=== PATIENT | female | born 1960 | race Caucasian/White ===

== ENCOUNTER 2021-03-07 11:08 | Inpatient (IN) | payer OTHER ==
[2021-03-07] VITALS (8 sets, daily range): BP systolic 145–173; BP diastolic 49–95
[~2021-03-07] VITALS: Ht 160 cm; Wt 111.6 kg
--- NOTE | 2021-03-07 11:20 | NUR ---
[id number] HOME FOR SOB SINCE LAST NIGHT. FAMILY MEMBERS SIMILAR SYMPTOMS NOT VACCINATED. UPON TRIAGE PT SATTING 80% ON O2 6LPM VIA N/C. PT A/OX4. CONNECTED PT TO POX AND MONITOR.
[2021-03-07] MEDS ORDERED: DEXAMETHASONE SOD PHOSPHATE 10 MG/ML VIAL ONE (11:50)
[2021-03-07] MEDS ORDERED: DEXAMETHASONE SOD PHOSPHATE 10 MG/ML VIAL IV ONE (12:00)
--- NOTE | 2021-03-07 12:08 | NUR ---
LAC #20G S/L; PATENT AND INTACT. BLOOD COLLECTED AND SENT TO LAB. COVID ANTIGEN AND PCR COLLECTED AND SENT TO LAB
[2021-03-07 12:10] LABS: BASOPHILS % (AUTO) 0.5 % (0.0-2.0); EOSINOPHILS % (AUTO) 0.5 % (0.0-6.0); HEMATOCRIT 36 % (33-45); HEMOGLOBIN 11.9 g/dL (11.5-14.8); LYMPHOCYTES # (AUTO) 0.5 K/uL (0.8-4.8); LYMPHOCYTES % (AUTO) 9.3 % (20.0-44.0); MEAN CORPUSCULAR HGB CONC 33 g/dl (31.0-36.0); MEAN CORPUSCULAR VOLUME 90 fL (82-100); MONOCYTES # (AUTO) 0.4 K/uL (0.1-1.30); NEUTROPHILS % (AUTO) 81.7 % (43.0-81.0); PLATELET COUNT (AUTO) 368 K/uL (150-450); RED BLOOD CELL COUNT(AUTO) 4.01 MIL/uL (4.0-5.2); WHITE BLOOD COUNT (AUTO) 4.9 K/uL (4.3-11.0)
--- NOTE | 2021-03-07 12:17 | NUR ---
PT. IS AWAKE AND ALERT PLACED INTO HIGH FLOW NASAL CANNULA DUE TO SOB AND 80% SATURATION IN 10 LPM SIMPLE MASK. HIGH FLOW PARAMETERS BELOW ORDER: 40 L FLOW FIO2 100% Addendum: 03/07/21 at 1220 by ANTONY WALLACE RT Amended: Links added.
--- NOTE | 2021-03-07 12:17 | NUR ---
RT AT PT'S BEDSIDE. PUT ON HIGHFLOW 40L / FIO2 100%; TOLERATING AT 95%.
[2021-03-07] MEDS ORDERED: AZIT250T13 PO (12:24)
[2021-03-07] MEDS ORDERED: BENZ200C53 PO (12:24)
[2021-03-07] MEDS ORDERED: METO25TA20 PO (12:24)
[2021-03-07] MEDS ORDERED: GABA-536 PO (12:24)
[2021-03-07] MEDS ORDERED: METF-440 PO (12:24)
[2021-03-07] MEDS ORDERED: INSU100I26 SQ (12:24)
[2021-03-07] MEDS ORDERED: HYDR-4077 PO (12:24)
[2021-03-07 12:34] LABS: ALANINE AMINOTRANSFERASE 22 U/L (12-78); ALBUMIN 2.3 g/dL (3.4-5.0); ALKALINE PHOSPHATASE 65 U/L (46-116); ASPARTATE AMINOTRANSFERASE 17 U/L (15-37); BILIRUBIN,TOTAL 0.4 mg/dL (0.2-1.0); CALCIUM, SERUM 8.6 mg/dL (8.5-10.1); CARBON DIOXIDE 24 mmol/L (21-32); CHLORIDE 97 mmol/L (98-107); CREATININE 1.5 mg/dL (0.6-1.3); POTASSIUM 4.7 mmol/L (3.5-5.1); SODIUM SERUM 134 mmol/L (136-145); TOTAL PROTEIN, SERUM 7.7 g/dL (6.4-8.2); UREA NITROGEN, BLOOD 31 mg/dL (7-18)
[2021-03-07 12:35] LABS: GLUCOSE 564 mg/dL (74-106)
--- NOTE | 2021-03-07 12:35 | NUR ---
LAB REPORTED BG [id number] - MICAH SAPP AWARE
[2021-03-07] MEDS ORDERED: INSULIN REGULAR, HUMAN 100 UNIT/ML 10 ML VIAL ONE (12:39)
[2021-03-07 12:48] LABS: ABG BASE EXCESS -2.7 mmol/L; ABG OXYGEN SATURATION 91.8 % (92.0-98.5); ABG PCO2 29.6 mmHg (35.0-45.0); ABG PH 7.451 (7.350-7.450); ABG PO2 63.2 mmHg (75.0-100.0); AaDO2 620.2 mmHg; COHb 0.3 % (0.5-1.5); MetHb 0.3 % (0.0-1.5); O2Hb 91.2 % (94.0-97.0); SITE, ABG Left Radial; VENT MODE, BG HFNC 40L 100%
[2021-03-07 13:00] LABS: D-DIMER 5.32 mg/L(FEU (0.17-0.50)
[2021-03-07] MEDS ORDERED: hydrALAZINE HCL IV 20 MG VIAL IV ONE (13:00)
[2021-03-07] MEDS ORDERED: IV NS 0.9% 1,000 ML BAG IV ONE ×2 (13:00)
[2021-03-07] MEDS ORDERED: METOPROLOL TARTRATE INJ 5 MG/5 ML AMPUL IV ONE (13:00)
[2021-03-07] MEDS ORDERED: LORAZEPAM INJ 2 MG/ML VIAL IV ONE (13:00)
[2021-03-07] MEDS ORDERED: INSULIN REGULAR, HUMAN 100 UNIT/ML 10 ML VIAL IV ONE ×2 (13:00→22:30)
[2021-03-07 13:03] LABS: C-REACTIVE PROTEIN 9.4 mg/dL (0.0-0.9); CREATINE KINASE, TOTAL 63 U/L (26-192)
[2021-03-07] MEDS ORDERED: hydrALAZINE HCL IV 20 MG VIAL ONE (13:07)
[2021-03-07] MEDS ORDERED: METOPROLOL TARTRATE INJ 5 MG/5 ML AMPUL ONE (13:07)
[2021-03-07] MEDS ORDERED: LORAZEPAM INJ 2 MG/ML VIAL ONE (13:08)
--- NOTE | 2021-03-07 13:13 | NUR ---
[facility] CALLED WOOL SHEARER PAGED.
--- NOTE | 2021-03-07 13:21 | NUR ---
BP 206/167. HYDRALAZINE & METROPOLOL IVP GIVEN ORDERED.
--- NOTE | 2021-03-07 13:57 | NUR ---
BS RECHECK AFTER INSULIN 10 UNITS: 415; MICAH SAPP NOTIFIED.
--- NOTE | 2021-03-07 13:58 | NUR ---
INFLUENZA SWAB COLLECTED AND SENT TO LAB
[2021-03-07] MEDS ORDERED: *INSULIN REGULAR(HUMULIN R)HUM 100 UNIT/ML VIAL SQ PRN (14:30)
[2021-03-07] MEDS ORDERED: ONDANSETRON HCL/PF 4 MG/2 ML VIAL IVP PRN (14:30)
[2021-03-07] MEDS ORDERED: ACETAMINOPHEN 325 MG TABLET PO PRN (14:30)
[2021-03-07] MEDS ORDERED: DEXTROSE 50%-WATER 50 ML DISP.SYRIN IV PRN ×3 (14:30→23:00)
[2021-03-07] MEDS ORDERED: Z GUARD REMEDY 4 OZ OINT TP PRN (14:30)
--- NOTE | 2021-03-07 14:49 | NUR ---
LAC #20G S/L; PATENT AND INTACT
--- NOTE | 2021-03-07 17:06 | NUR ---
PER RN ELECTRONIC EQUIPMENT INSTALLER PT CAN GO TO ICU ROOM 259
--- NOTE | 2021-03-07 17:45 | NUR ---
REPORT GIVEN TO ODALIS INSTRUMENTATION AND CONTROL TECHNICIAN FOR BERNADETTE
--- NOTE | 2021-03-07 18:05 | NUR ---
RN NOTES PATIENT ADMITTED FROM ER 60Y/OLD FEMALE ON Dx OF ACUTE HYPOXIC RESPIRATORY FAILURE. PATIENT A/O X4, LETHARGIC, ON HIGH FLOW MASK 40%. ON BEDSIDE MONITOR SHOWS 89% O2, HR 85. REFUSED PAIN. SKIN ASSESSMENT DONE INTACT, PATIENT USING BEDSIDE COMMODE, AMBULATORY SELF CARE. BS-466MG/DL COVERAGE GIVEN. STARTED D51/2 NS @75 ML/HR ON LEFT AC AREA IV ACCESS. GIVEN SNACK. ENDORSED ONCOMING NURSE FOLLOW PLAN OF CARE.
--- NOTE | 2021-03-07 18:14 | NUR ---
PT TRANSFERRED TO TO ICU 259 VIA ACLS PROTOCOL WITH RN. ALL BELONGINGS WITH PT. PT TOLERATING TRANSFER WELL.
[2021-03-07] MEDS: BLOOD SUGAR DIAGNOSTIC 1 EACH STRIP VI SCH ×2 (19:10→21:51)
[2021-03-07] MEDS: IV D5/0.45 NACL 1,000 ML IV PRN (19:11)
[2021-03-07] MEDS: INSULIN REGULAR, HUMAN 100 UNIT/ML 3 ML VIAL SQ PRN ×3 (19:16→22:57)
--- NOTE | 2021-03-07 19:35 | NUR ---
RN OPENING NOTES RECEIVED PATIENT IN BED, ALERT AND ORIENTED, RESPIRATORY EVEN AND UNLABORED, ON HIGH FLOW TOLERATING WELL, NO SOB NOTED, NO S/S OF DISTRESS NOTED. PATIENT NOTED WITH RAC PERIPHERAL LINE G#20 AND LAC PERIPHERAL LINE G#20 BOTH INTACT AND FLUSHING WELL. RUNNING ON D5 1/2 NS @ 75CC/HR. BED IN LOWEST POSITION LOCKED AND BED ALARM ARMED. WILL CONTINUE TO MONITOR
--- NOTE | 2021-03-07 21:43 | NUR ---
RN NOTES NOTIFIED DR. CAVANAUGH FOR BP 173/80 AND BLOOD SUGAR- 597
--- NOTE | 2021-03-07 21:50 | NUR ---
RN NOTES RECEIVED TELEPHONE ORDER FROM DR. CAVANAUGH, REGULAR INSULIN 12 UNITS IVP, CHANGED SLIDING SCALE TO AGGRESSIVE SLIDING SCALE, CLONIDINE 0.1MG Q6HRS PO PRN SBP >150, HYDRALAZINE 20MG IVP, Q4HRS PRN FOR SBP >160 NOTED AND CARRIED OUT. WILL CONTINUE TO MONITOR .
[2021-03-07] MEDS: HEPARIN SODIUM, PORCINE 5000 UNITS/1 ML VIAL SQ SCH (21:54)
[2021-03-07] MEDS ORDERED: BLOOD SUGAR DIAGNOSTIC 1 EACH STRIP IN SCH (22:30)
[2021-03-07] MEDS ORDERED: *INSULIN ASPART NOVOLOG 100 UNIT/ML CARTRIDGE SQ PRN (22:30)
[2021-03-07] MEDS ORDERED: INSULIN ASPART/LISPRO 100 UNIT/ML CARTRIDGE SQ PRN (22:30)
--- NOTE | 2021-03-07 23:00 | NUR ---
RN NOTES URINALYSIS RESULT CAME IN, CHARGE NURSE MADE AWARE.
[2021-03-08] VITALS (67 sets, daily range): BP systolic 77–183; BP diastolic 37–159
[2021-03-08 00:10] LABS: BILIRUBIN,URINE NEGATIVE (NEGATIVE); COLOR,URINE YELLOW (YELLOW); LEUKOCYTE ESTERASE ,URINE NEGATIVE (NEGATIVE); NITRITE, URINE NEGATIVE (NEGATIVE); PROTEIN,URINE 100 mg/dl (NEGATIVE); UGLUCOSE >=1000 mg/dL (NEGATIVE); UROBILINOGEN,URINE 0.2 EU/dL (0.2)
[2021-03-08 01:07] LABS: BACTERIA,URINE Few /HPF (None Seen); RBC,URINE 0-2 /HPF (0-2); SQUAMOUS EPITHELIAL CELL,UR Few /HPF (None Seen); WBC,URINE 0-2 /HPF (0-3); YEAST,URINE Many /HPF (None Seen)
--- NOTE | 2021-03-08 02:57 | NUR ---
RN NOTES RESIDENT NOTED WITH BP 144/16 ON THE MONITOR, BP RECHECKED USING MANUAL CUFF AND OBTAINED 145/90.
[2021-03-08 05:05] LABS: BASOPHILS % (AUTO) 0.2 % (0.0-2.0); EOSINOPHILS % (AUTO) 0.1 % (0.0-6.0); HEMATOCRIT 33 % (33-45); LYMPHOCYTES # (AUTO) 0.5 K/uL (0.8-4.8); LYMPHOCYTES % (AUTO) 10.5 % (20.0-44.0); MEAN CORPUSCULAR HGB CONC 33 g/dl (31.0-36.0); MEAN CORPUSCULAR VOLUME 88 fL (82-100); MONOCYTES # (AUTO) 0.5 K/uL (0.1-1.30); MONOCYTES % (AUTO) 10.2 % (2.0-12.0); NEUTROPHILS # (AUTO) 3.5 K/uL (1.8-8.9); PLATELET COUNT (AUTO) 330 K/uL (150-450); RED BLOOD CELL COUNT(AUTO) 3.77 MIL/uL (4.0-5.2); WHITE BLOOD COUNT (AUTO) 4.5 K/uL (4.3-11.0)
[2021-03-08 05:44] LABS: BILIRUBIN,TOTAL 0.2 mg/dL (0.2-1.0); CALCIUM, SERUM 8.3 mg/dL (8.5-10.1); CREATININE 1.1 mg/dL (0.6-1.3); PHOSPHORUS 2.7 mg/dL (2.5-4.9); TOTAL PROTEIN, SERUM 6.9 g/dL (6.4-8.2)
--- NOTE | 2021-03-08 07:15 | NUR ---
RN CLOSING NOTES NO SIGNIFICANT CHANGES THROUGH OUT THE SHIFT, , RESPIRATORY EVEN AND UNLABORED, ON HIGH FLOW @40% + NRB @ 15LPM TOLERATING WELL, NO SOB NOTED, NO S/S OF DISTRESS NOTED. PATIENT NOTED WITH RAC PERIPHERAL LINE G#20 AND LAC PERIPHERAL LINE G#20 BOTH INTACT AND FLUSHING WELL. RUNNING ON D5 1/2 NS @ 75CC/HR. ALL DUE MEDS GIVEN ORDERED. BED IN LOWEST POSITION LOCKED AND BED ALARM ARMED. WILL CONTINUE TO MONITOR. ENDORSED TO NEXT SHIFT.
--- NOTE | 2021-03-08 08:00 | NUR ---
RN NOTES RECEIVED PATIENT IN THE BED RESTING,, ON HF 40%+ NON -REBREATHER MASK @15L-O2-95%. HR 75 ON BEDSIDE MONITOR. PATIENT HAS NO ACUTE RESPIRATORY DISTRESS, BS-278MG/DL COVERAGE GIVEN, ALSO ADMINISTERED SCHEDULED MEDICATION. CALL LIGHT WITHIN TO REACH. WILL FOLLOW UP.
[2021-03-08] MEDS: BLOOD SUGAR DIAGNOSTIC 1 EACH STRIP IN SCH ×4 (08:47→21:50)
[2021-03-08] MEDS: DEXAMETHASONE SOD PHOSPHATE 10 MG/ML VIAL IV SCH (08:48)
[2021-03-08] MEDS: FAMOTIDINE (20 MG) 20 MG TABLET PO SCH (08:48)
[2021-03-08] MEDS: INSULIN REGULAR, HUMAN 100 UNIT/ML 3 ML VIAL SQ PRN ×3 (08:52→18:39)
[2021-03-08] MEDS: HEPARIN SODIUM, PORCINE 5000 UNITS/1 ML VIAL SQ SCH (08:56)
[2021-03-08] MEDS: CLONIDINE HCL 0.1 MG TABLET PO PRN (09:02)
--- NOTE | 2021-03-08 09:02 | NUR ---
rn notes administered Catapres 0.1 mg po prn for bp 152/61, p-76, also administered scheduled medication. Seen patient via captain cannery tender Dr Martinez, no new orders at this time.
[2021-03-08] MEDS: IV D5/0.45 NACL 1,000 ML IV PRN (11:53)
--- NOTE | 2021-03-08 12:21 | NUR ---
RN NOTES BS-306 MG/DL, PATIENT ON HF 40%, AND MARIAH OF NON -REBREATHER MASK 15 L, O2-93% IF NOT TAKING OUT. BS-306 MG/DL, COVERAGE GIVEN. PATIENT EATING LUNCH. ENCOURAGED TO KEEP MASK ON, AND BREATH. PATIENT STATE TO MUCH NOISE BOTHERING HER. USING BEDSIDE COMMODE. [facility]. WILL FOLLOW UP.
[2021-03-08] MEDS: ENOXAPARIN SODIUM 40 MG/0.4 ML DISP.SYRIN SQ SCH (18:21)
[2021-03-08] MEDS ORDERED: REMDESIVIR (CHARGED) 200 MG, *LOADING DOSE 1 EA in IV NS 0.9% 210 ML IV ONE ×3 (18:30→20:30)
--- NOTE | 2021-03-08 19:01 | NUR ---
rn notes assist patient pm care, patient noted getting tiered easily, also state " i wants to go home, get treatment house". bs-432 mg/dl, due medication administered infusing D51/2 ns @75 ml/hr on right ac line intact. patient coved positive, eating dinner. using bedside commode. call light within to reach. will follow up.
[2021-03-08] MEDS ORDERED: ACETAMINOPHEN 650 MG/20.3 ML UDC PO ONE (19:30)
[2021-03-08] MEDS ORDERED: TOCILIZUMAB 400 MG in IV NS 0.9% 80 ML IV ONE (19:30)
[2021-03-08] MEDS ORDERED: diphenhydrAMINE HCL 25 MG CAPSULE PO ONE ×2 (19:30)
[2021-03-08] MEDS ORDERED: TOCILIZUMAB 800 MG in IV NS 0.9% 80 ML IV ONE ×2 (19:30→21:00)
[2021-03-08] MEDS ORDERED: ACETAMINOPHEN 325 MG TABLET PO PRN (19:30)
[2021-03-08 20:04] LABS: ALBUMIN 2.1 g/dL (3.4-5.0); BILIRUBIN,DIRECT 0.1 mg/dL (0.0-0.2); BILIRUBIN,TOTAL 0.3 mg/dL (0.2-1.0); TOTAL PROTEIN, SERUM 6.8 g/dL (6.4-8.2)
[2021-03-08] MEDS ORDERED: IV NS 0.9% 250 ML IV PRN (21:30)
[2021-03-08] MEDS: *INSULIN REGULAR(HUMULIN R)HUM 100 UNIT/ML VIAL SQ PRN (21:53)
--- NOTE | 2021-03-08 22:00 | NUR ---
ICU NOTES Received patient awake alert and orientedx4.DX: Acute Hypoxemic Respiratory Failure. COVID + VS stable.SR.On HF 40L,100% FIO2 and NRB MASK 15L saturation low 90's and desat easily with activity low 80's.With SOB on exertion.Use BS commode.IVF infusing site intact.Continue to monitor.
--- NOTE | 2021-03-08 22:30 | NUR ---
ICU NOTES Patient received loading dose of Remdesivir and Actemra and was premedicated. No adverse reaction noted.
[2021-03-09] VITALS (25 sets, daily range): BP systolic 129–167; BP diastolic 46–97
[2021-03-09 04:59] LABS: BASOPHILS % (AUTO) 0.4 % (0.0-2.0); EOSINOPHILS % (AUTO) 1.1 % (0.0-6.0); HEMATOCRIT 34 % (33-45); HEMOGLOBIN 11.4 g/dL (11.5-14.8); LYMPHOCYTES # (AUTO) 0.9 K/uL (0.8-4.8); LYMPHOCYTES % (AUTO) 19.9 % (20.0-44.0); MEAN CORPUSCULAR HGB CONC 34 g/dl (31.0-36.0); MEAN CORPUSCULAR VOLUME 88 fL (82-100); MONOCYTES # (AUTO) 0.3 K/uL (0.1-1.30); MONOCYTES % (AUTO) 5.8 % (2.0-12.0); NEUTROPHILS # (AUTO) 3.4 K/uL (1.8-8.9); NEUTROPHILS % (AUTO) 72.8 % (43.0-81.0); PLATELET COUNT (AUTO) 350 K/uL (150-450); RED BLOOD CELL COUNT(AUTO) 3.83 MIL/uL (4.0-5.2); WHITE BLOOD COUNT (AUTO) 4.7 K/uL (4.3-11.0)
[2021-03-09 05:06] LABS: BILIRUBIN,DIRECT 0.1 mg/dL (0.0-0.2); BILIRUBIN,TOTAL 0.2 mg/dL (0.2-1.0); CALCIUM, SERUM 8.4 mg/dL (8.5-10.1); CREATININE 1.1 mg/dL (0.6-1.3); TOTAL PROTEIN, SERUM 6.8 g/dL (6.4-8.2)
--- NOTE | 2021-03-09 07:10 | NUR ---
END REPORT Patient resting in no acute distress.VS remains stable.SR .Saturations unchanged. RT aware.AM care rendered.Needs met.Report given to day shift RN
--- NOTE | 2021-03-09 07:30 | NUR ---
RN NOTES PT FOUND SITTING UP DISPLAYING NO S/S OF DISTRESS, PT ENDORSES NO PAIN AND IS BREATHING EVEN AND UNLABORED ON HIGH HERMELINDO NC AND RNB. PT IS A&OX4, CALM AND COOPERATIVE. NO CURRENT COMPLAINTS. R AC 20G PATIENT AND INTACT. VSS, RN WILL MONITOR AND TREAT THROUGHOUT SHIFT. SAFETY MEASURES IN PLACE, BED LOCKED AND IN LOWEST POSITION, SIDE RAILS UPX2, CALL LIGHT WITHIN REACH, PT INSTRUCTED TO CALL FOR ASSISTANCE.
[2021-03-09] MEDS: BLOOD SUGAR DIAGNOSTIC 1 EACH STRIP IN SCH ×4 (07:43→21:43)
[2021-03-09] MEDS: INSULIN REGULAR, HUMAN 100 UNIT/ML 3 ML VIAL SQ PRN ×3 (07:47→17:53)
[2021-03-09] MEDS: FAMOTIDINE (20 MG) 20 MG TABLET PO SCH (08:59)
[2021-03-09] MEDS: DEXAMETHASONE SOD PHOSPHATE 10 MG/ML VIAL IV SCH (08:59)
[2021-03-09] MEDS: ENOXAPARIN SODIUM 40 MG/0.4 ML DISP.SYRIN SQ SCH ×2 (09:01→17:33)
[2021-03-09] MEDS: REMDESIVIR (CHARGED) 100 MG in IV NS 0.9% 100 ML IV SCH (17:30)
[2021-03-09] MEDS: CLONIDINE HCL 0.1 MG TABLET PO PRN (17:30)
--- NOTE | 2021-03-09 19:15 | NUR ---
RN NOTES PT, ONCE AGAIN, FOUND SITTING UP DISPLAYING NO S/S OF DISTRESS, PT ENDORSES NO PAIN AND IS BREATHING EVEN AND UNLABORED ON HIGH HERMELINDO NC AND RNB. PT IS A&OX4, CALM AND COOPERATIVE. NO CURRENT COMPLAINTS. R AC 20G PATIENT AND INTACT. SBAR AND REPORT GIVEN TO PODIATRIST RN. SAFETY MEASURES IN PLACE, BED LOCKED AND IN LOWEST POSITION, SIDE RAILS UPX2, CALL LIGHT WITHIN REACH, PT INSTRUCTED TO CALL FOR ASSISTANCE. PT ENDORSED IN STABLE CONDITION FOR BERNADETTE, ALL QUESTIONS ANSWERED.
--- NOTE | 2021-03-09 19:30 | NUR ---
RN OPENING NOTE RECEIVED PATIENT IN BED. A/OX4. ON OXYGEN HIGH FLOW 40L AND 15L NRB. O2 SAT 89-90%. PATIENT IS SITTING IN BED AT THIS TIME. SPEAKING WITH FAMILY VIA CELLPHONE. NO C/O PAIN AT THIS TIME. IV ACCESS IN LAC#20 AND RAC#20 PATENT AND SALINE LOCKED. ASSISTED PATIENT TO BSC. ASKED HER IF SHE WOULD LIKE TO CHANGE HER LINEN AT THIS TIME, STATED NO THEY CHANGED IT EARLIER. WHEN ASSISTING PATIENT BACK IN BED, INFORMED HER IT WOULD BE BETTER IF SHE WERE PRONE, BUT STATED SHE CANT BECAUSE THE BED IS NOT FLAT, INFORMED HER I CAN MAKE IT FLAT. SHE STATED SHE DIDN'T WANT TO DO THAT AT THIS TIME. BED IS LOW AND LOCKED, HOB ELEVTAED IN SEMI/HIGH FOWLERS, SIDE RIALS UP X2. CALL LIGHT WITHIN REACH.
[2021-03-09] MEDS: *INSULIN REGULAR(HUMULIN R)HUM 100 UNIT/ML VIAL SQ PRN (21:52)
[2021-03-10] VITALS (28 sets, daily range): BP systolic 122–187; BP diastolic 58–129
[2021-03-10] MEDS: CLONIDINE HCL 0.1 MG TABLET PO PRN ×2 (02:11→19:15)
[2021-03-10 04:46] LABS: BASOPHILS % (AUTO) 0.4 % (0.0-2.0); EOSINOPHILS % (AUTO) 3.1 % (0.0-6.0); HEMATOCRIT 33 % (33-45); HEMOGLOBIN 11.1 g/dL (11.5-14.8); LYMPHOCYTES # (AUTO) 0.7 K/uL (0.8-4.8); LYMPHOCYTES % (AUTO) 19.2 % (20.0-44.0); MEAN CORPUSCULAR HGB CONC 34 g/dl (31.0-36.0); MEAN CORPUSCULAR VOLUME 88 fL (82-100); MONOCYTES # (AUTO) 0.3 K/uL (0.1-1.30); MONOCYTES % (AUTO) 8.6 % (2.0-12.0); NEUTROPHILS # (AUTO) 2.3 K/uL (1.8-8.9); NEUTROPHILS % (AUTO) 68.7 % (43.0-81.0); PLATELET COUNT (AUTO) 335 K/uL (150-450); RED BLOOD CELL COUNT(AUTO) 3.75 MIL/uL (4.0-5.2); WHITE BLOOD COUNT (AUTO) 3.4 K/uL (4.3-11.0)
[2021-03-10 05:12] LABS: BILIRUBIN,DIRECT 0.1 mg/dL (0.0-0.2); BILIRUBIN,TOTAL 0.2 mg/dL (0.2-1.0); CALCIUM, SERUM 8.5 mg/dL (8.5-10.1); CREATININE 1.1 mg/dL (0.6-1.3); POTASSIUM 3.8 mmol/L (3.5-5.1); TOTAL PROTEIN, SERUM 6.2 g/dL (6.4-8.2)
--- NOTE | 2021-03-10 06:14 | NUR ---
RN CLOSING NOTE PATIENT RESTING IN BED. A/OX4. REMAINS ON DOUBLE OXYGEN SET UP. HIGH FLOW 40L AND 15L NRB. PATIENT DOES DESATURATE TO 79% WHEN REMOVING 15L NRB. NO C/O PAIN THROUGHOUT NIGHT. ADMINISTERED PRN CLONIDINE D/T PATIENT BLOOD PRESSURE. LAC AND RAC #20 INTACT. CONTINUED TO REFUSE LINEN CHANGE THROUGHOUT NIGHT. BED REMAINS LOW AND LOCKED, HOB ELEVATED IN SEMI/HIGH FOWLERS, SIDE RIALS UP X2. CALL LIGHT WITHIN REACH. PATIENT SITTING AT EDGE OF BED.
[2021-03-10] MEDS: PANTOPRAZOLE 40 MG/PACK PACK PO SCH (08:05)
[2021-03-10] MEDS: DEXAMETHASONE SOD PHOSPHATE 10 MG/ML VIAL IV SCH (08:05)
[2021-03-10] MEDS: FAMOTIDINE (20 MG) 20 MG TABLET PO SCH (08:05)
[2021-03-10] MEDS: BLOOD SUGAR DIAGNOSTIC 1 EACH STRIP IN SCH ×4 (08:06→22:09)
[2021-03-10] MEDS: hydrALAZINE HCL IV 20 MG VIAL IV PRN (08:25)
[2021-03-10] MEDS: INSULIN REGULAR, HUMAN 100 UNIT/ML 3 ML VIAL SQ PRN ×3 (08:26→17:52)
[2021-03-10] MEDS: ENOXAPARIN SODIUM 40 MG/0.4 ML DISP.SYRIN SQ SCH ×2 (08:27→17:45)
--- NOTE | 2021-03-10 15:40 | NUR ---
RT NOTE PATIENT SPO2 96-97%. REMOVED NRB. NO SOB NOTED AT THIS TIME. CAMACHO LONG.
[2021-03-10] MEDS: REMDESIVIR (CHARGED) 100 MG in IV NS 0.9% 100 ML IV SCH (17:45)
--- NOTE | 2021-03-10 19:20 | NUR ---
RN NOTES PT, FOUND SEMI FOWLERS DISPLAYING NO S/S OF DISTRESS, PT ENDORSES NO PAIN AND IS BREATHING EVEN AND UNLABORED ON HIGH HERMELINDO NC. PT IS A&OX4, CALM AND COOPERATIVE. R AC 20G PATIENT AND INTACT. SBAR AND REPORT GIVEN TO MOLD SHEET CLEANER RN. SAFETY MEASURES IN PLACE, BED LOCKED AND IN LOWEST POSITION, SIDE RAILS UPX2, CALL LIGHT WITHIN REACH, PT INSTRUCTED TO CALL FOR ASSISTANCE. PT ENDORSED IN STABLE CONDITION FOR BERNADETTE, ALL QUESTIONS ANSWERED.
--- NOTE | 2021-03-10 20:28 | NUR ---
RECEIVED PT ON HFNC 40L 100%. NO RESP DISTRESS, PT TOLERATING SETTINGS. CONTINUE TO MONITOR. Addendum: 03/10/21 at 2028 by SHEKHAR SANCHES RT Amended: Links added.
--- NOTE | 2021-03-10 20:30 | NUR ---
ICU/HAT AND CAP SEWER PT GOT UP TO THE BATHROOM, VOIDED X1 THEN HAD SOME SHORTNESS OF BREATH. NON REBREATHER MASK AT 15 LITERS WAS ADDED TO THE HIGH FLOW. WILL CONTINUE TO MONITOR THIS PT AND HER SATURATION.
[2021-03-10] MEDS: *INSULIN REGULAR(HUMULIN R)HUM 100 UNIT/ML VIAL SQ PRN (22:12)
[2021-03-11] VITALS (44 sets, daily range): BP systolic 63–177; BP diastolic 27–94
[2021-03-11 03:47] LABS: BASOPHILS % (AUTO) 0.5 % (0.0-2.0); EOSINOPHILS % (AUTO) 3.7 % (0.0-6.0); HEMATOCRIT 34 % (33-45); HEMOGLOBIN 11.6 g/dL (11.5-14.8); LYMPHOCYTES # (AUTO) 0.9 K/uL (0.8-4.8); LYMPHOCYTES % (AUTO) 21.8 % (20.0-44.0); MEAN CORPUSCULAR HGB CONC 34 g/dl (31.0-36.0); MEAN CORPUSCULAR VOLUME 87 fL (82-100); MONOCYTES # (AUTO) 0.3 K/uL (0.1-1.30); MONOCYTES % (AUTO) 8.3 % (2.0-12.0); NEUTROPHILS # (AUTO) 2.7 K/uL (1.8-8.9); NEUTROPHILS % (AUTO) 65.7 % (43.0-81.0); PLATELET COUNT (AUTO) 348 K/uL (150-450); RED BLOOD CELL COUNT(AUTO) 3.88 MIL/uL (4.0-5.2); WHITE BLOOD COUNT (AUTO) 4.1 K/uL (4.3-11.0)
[2021-03-11 04:11] LABS: ALBUMIN 2.1 g/dL (3.4-5.0); BILIRUBIN,DIRECT 0.1 mg/dL (0.0-0.2); BILIRUBIN,TOTAL 0.2 mg/dL (0.2-1.0); CALCIUM, SERUM 8.1 mg/dL (8.5-10.1); CREATININE 1.1 mg/dL (0.6-1.3); POTASSIUM 3.8 mmol/L (3.5-5.1); TOTAL PROTEIN, SERUM 6.3 g/dL (6.4-8.2)
--- NOTE | 2021-03-11 04:30 | NUR ---
ICU/ELECTROLYSIST HYDRALAZINE IVP PRN WAS GIVEN FOR SBP 177/91, PT'S BLOOD PRESSURE HAS SLOWLY BEEN INCREASING OVER THE PAST FEW HOURS. WILL CONTINUE TO CLOSELY MONITOR THIS PT AND HER BLOOD PRESSURE.
[2021-03-11] MEDS ORDERED: hydrALAZINE HCL IV 20 MG VIAL ONE (04:33)
[2021-03-11] MEDS: hydrALAZINE HCL IV 20 MG VIAL IV PRN (04:37)
[2021-03-11] MEDS: BLOOD SUGAR DIAGNOSTIC 1 EACH STRIP IN SCH ×4 (08:09→21:09)
[2021-03-11] MEDS: INSULIN REGULAR, HUMAN 100 UNIT/ML 3 ML VIAL SQ PRN ×2 (08:10→11:49)
[2021-03-11] MEDS: FAMOTIDINE (20 MG) 20 MG TABLET PO SCH (08:10)
[2021-03-11] MEDS: PANTOPRAZOLE 40 MG/PACK PACK PO SCH (08:11)
[2021-03-11] MEDS: ENOXAPARIN SODIUM 40 MG/0.4 ML DISP.SYRIN SQ SCH ×2 (08:11→17:51)
[2021-03-11] MEDS: DEXAMETHASONE SOD PHOSPHATE 10 MG/ML VIAL IV SCH (08:29)
--- NOTE | 2021-03-11 08:50 | NUR ---
ICU/BIOMETRICS INSTRUCTOR PT WAS COUGHING TO THE POINT SHE WAS HAVING NAUSEA, NOTIFED THE CHARGE NURSE WAS ABLE TO GIVE HER ZOFRAN IVP PRN BY WAFER LINE WORKER NURSE. WILL CONTINUE TO MONITOR THIS PT AND HER NAUSEA.
--- NOTE | 2021-03-11 09:42 | NUR ---
ICU/COLLEGE ASSOCIATE DR BOSS CAME TO SEE PT, ASKED ABOUT BEING DISCHARGED HOWEVER PT IS ON HIGH FLOW ALONG WITH NON REBREATHER SINCE LAST NIGHT 1999 WHEN SHE GOT UP TO BATHROOM.
--- NOTE | 2021-03-11 13:00 | NUR ---
ICU/DIRECTOR OF CHILD WELFARE SERVICES PT SAT IN CHAIR WAS ABLE TO DO SOME RANGE OF MOTION, ENCOURAGE FOOT PETALS/GAS/STOP AND GO TO HELP WITH CIRCULATION. WILL MONITOR THIS PT.
[2021-03-11] MEDS: REMDESIVIR (CHARGED) 100 MG in IV NS 0.9% 100 ML IV SCH (17:53)
[2021-03-11] MEDS: *INSULIN REGULAR(HUMULIN R)HUM 100 UNIT/ML VIAL SQ PRN ×2 (17:54→21:13)
--- NOTE | 2021-03-11 18:17 | NUR ---
ICU/OINTMENT MILL TENDER STOOL SOFTENER WAS ORDERED FOR THIS PT, PT SAID SHE HASN'T HAD A BM X2DAYS. COLACE 100MG PO WILL START TONIGHT.
--- NOTE | 2021-03-11 19:30 | NUR ---
RN NOTE RECEIVED PATIENT IN CHAIR BY BEDSIDE. AWAKE, ALERT, AND VERBALLY RESPONSIVE. AOX4. ABLE TO MAKE NEEDS KNOWN. BREATHING EVEN AND UNLABORED AT THIS TIME. PATIENT TOLERATING 40L/MIN HIGH FLOW VIA NASAL CANNULA. CURRENTLY NOT USING NON-REBREATHER MASK AT THIS TIME. OXYGEN SATURATION OF 95 PERCENT. NOTED WITH NON-PRODUCTIVE COUGH. SATURATION DROPS TO LOW 90'S WHEN TALKING/COUGHING. DENIES CHEST PAIN AT THIS TIME. ON TELE-MONITORING, SINUS RHYTHM AT THIS TIME. SKIN WARM AND DRY. NOTED WITH PERIPHERAL IV ON RIGHT AC 20G, PATENT. NO INFILTRATION. NOTED WITH LEFT AC 20G. NO IVF RUNNING AT THIS TIME. DENIES PAIN AT THIS TIME. NO S/S OF HYPO/HYPERGLYCEMIA. BEDSIDE COMMODE PRESENT. BED LOW, IN LOCKED POSITION. CALL LIGHT WITHIN REACH.
[2021-03-11] MEDS: DOCUSATE SODIUM 100 MG CAPSULE PO SCH (21:09)
--- NOTE | 2021-03-11 21:20 | NUR ---
RN NOTE EXPLAINED TO PATIENT THAT SHE HAS SCHEDULED STOOL SOFTENER FOR TONIGHT. EXPLAINED ITS PURPOSE AND RISK/BENEFITS. PATIENT REFUSED MEDICATION. PATIENT STATES HER LAST BM WAS ABOUT 2 DAYS AGO. STILL REFUSED. WILL CONTINUE TO MONITOR. BEDSIDE COMMODE PRESENT. DENIES ABDOMINAL PAIN/GAS.
--- NOTE | 2021-03-11 21:26 | NUR ---
RN NOTE PATIENT NOTED WITH LOW BP. 63/27. PATIENT AOX4. STATES SHE IS DOING FINE. DENIES FEELING DIZZINESS/FAINTING. TELE MONITORING SHOWS SINUS RHYTHM AT 64 BPM. REPOSITIONED CUFF. Latest BP: 136/73
[2021-03-12] VITALS (38 sets, daily range): BP systolic 103–172; BP diastolic 42–122
--- NOTE | 2021-03-12 01:59 | NUR ---
RN NOTE LEFT AC 20G PERIPHERAL IV LEAKING. REMOVED. MIDLINE 18G PLACED ON RIGHT UPPER ARM.
[2021-03-12 04:47] LABS: BASOPHILS % (AUTO) 0.5 % (0.0-2.0); EOSINOPHILS % (AUTO) 2.9 % (0.0-6.0); HEMATOCRIT 36 % (33-45); LYMPHOCYTES # (AUTO) 0.8 K/uL (0.8-4.8); LYMPHOCYTES % (AUTO) 17.3 % (20.0-44.0); MEAN CORPUSCULAR HGB CONC 33 g/dl (31.0-36.0); MEAN CORPUSCULAR VOLUME 89 fL (82-100); MONOCYTES # (AUTO) 0.4 K/uL (0.1-1.30); MONOCYTES % (AUTO) 8.1 % (2.0-12.0); NEUTROPHILS # (AUTO) 3.3 K/uL (1.8-8.9); NEUTROPHILS % (AUTO) 71.2 % (43.0-81.0); PLATELET COUNT (AUTO) 354 K/uL (150-450); RED BLOOD CELL COUNT(AUTO) 4.05 MIL/uL (4.0-5.2); WHITE BLOOD COUNT (AUTO) 4.7 K/uL (4.3-11.0)
[2021-03-12 05:04] LABS: ALBUMIN 2.4 g/dL (3.4-5.0); BILIRUBIN,DIRECT 0.1 mg/dL (0.0-0.2); BILIRUBIN,TOTAL 0.3 mg/dL (0.2-1.0); CALCIUM, SERUM 8.2 mg/dL (8.5-10.1); CREATININE 1.1 mg/dL (0.6-1.3); POTASSIUM 4.2 mmol/L (3.5-5.1); TOTAL PROTEIN, SERUM 6.7 g/dL (6.4-8.2)
[2021-03-12] MEDS: CLONIDINE HCL 0.1 MG TABLET PO PRN (05:11)
--- NOTE | 2021-03-12 05:11 | NUR ---
RN NOTE PATIENT NOTED WITH SBP >150 AT BP OG 155/79, HR 64 AT THIS TIME. PER MD STANDING ORDER. ADMINISTER CLONIDINE 0.1MG FOR SBP GREATER THAN 150. NOTED AND CARRIED OUT. PATIENT DENIES FEELINGS OF HEADACHE OR N/V. WILL CONTINUE TO MONITOR. CALL LIGHT WITHIN REACH.
--- NOTE | 2021-03-12 07:30 | NUR ---
RN MORNING NOTE PT RECEIVED SITTING AT BEDSIDE IN CHAIR ON HIGH HERMELINDO 40L/MIN AND 100% FIO2, PT IS TOLERATING WELL WITH NO SIGNS OF LABORED BREATHING OR DISTRESS. PT IS A/O X4 AND IS TELE MONITORED SR. PT IS AMBULATORY AND USES BEDSIDE COMMODE; PT LAST BM 03/09/21. IV ACCESS R UA MIDLINE 18G. BED IS LOCKED IN LOWEST POSITION X2 BED RAILS UP, CALL PAEZ IS WITHIN REACH AT BEDSIDE, ALL HOSPITAL SAFETY MEASURES ARE IN PLACE. WILL CONTINUE TO MONITOR THIS SHIFT.
[2021-03-12] MEDS: BLOOD SUGAR DIAGNOSTIC 1 EACH STRIP IN SCH ×4 (07:57→21:22)
[2021-03-12] MEDS: DOCUSATE SODIUM 100 MG CAPSULE PO SCH (09:19)
[2021-03-12] MEDS: DEXAMETHASONE SOD PHOSPHATE 10 MG/ML VIAL IV SCH (09:19)
[2021-03-12] MEDS: FAMOTIDINE (20 MG) 20 MG TABLET PO SCH (09:20)
[2021-03-12] MEDS: PANTOPRAZOLE 40 MG/PACK PACK PO SCH (09:20)
[2021-03-12] MEDS: ENOXAPARIN SODIUM 40 MG/0.4 ML DISP.SYRIN SQ SCH ×2 (09:21→17:03)
[2021-03-12] MEDS: INSULIN REGULAR, HUMAN 100 UNIT/ML 3 ML VIAL SQ PRN ×3 (09:22→17:29)
--- NOTE | 2021-03-12 11:00 | NUR ---
RN NOTE PT FIO2 TITRATED FROM 100 TO 85% SAT 96%. WILL CONTINUE TO MONITOR THIS SHIFT.
[2021-03-12] MEDS: GLUCERNA SHAKE 237 ML CAN PO SCH ×2 (12:06→18:32)
--- NOTE | 2021-03-12 17:15 | NUR ---
RN NOTE CALLED LAB FOR URINE CULTURE SPECIMEN PICKUP FROM ICU SPECIMEN [facility].
[2021-03-12] MEDS: REMDESIVIR (CHARGED) 100 MG in IV NS 0.9% 100 ML IV SCH (18:31)
--- NOTE | 2021-03-12 19:17 | NUR ---
RN CLOSING NOTE PT SITTING AT BEDSIDE IN CHAIR ON HIGH HERMELINDO 40L/MIN AND 85% FIO2, O2 SAT 95%. PT IS TOLERATING WELL WITH NO SIGNS OF LABORED BREATHING OR DISTRESS. PT IS A/O X4 AND IS TELE MONITORED SR. PT IS AMBULATORY AND USES BEDSIDE COMMODE WITH 1 BM MOVEMENT TODAY. IV ACCESS R UA MIDLINE 18G AND RECEIVING FINAL BAG OF REMDESIVIR. BED IS LOCKED IN LOWEST POSITION X2 BED RAILS UP, CALL PAEZ IS WITHIN REACH AT BEDSIDE, ALL HOSPITAL SAFETY MEASURES ARE IN PLACE. ALL MEDS GIVEN AND ALL NEEDS MEET. WILL ENDORSE TO CENTRIFUGAL OPERATOR NURSE FOR BERNADETTE.
[2021-03-12] MEDS: *INSULIN REGULAR(HUMULIN R)HUM 100 UNIT/ML VIAL SQ PRN (21:25)
[2021-03-13] VITALS (38 sets, daily range): BP systolic 67–143; BP diastolic 38–98
--- NOTE | 2021-03-13 00:10 | NUR ---
ICU/GENERAL INTERN PT ASLEEP IN CHAIR, NO DISTRESS SEEN AT THIS TIME. PT'S SATURATION IS 95-96%. CALL LIGHT WITHIN REACH.
--- NOTE | 2021-03-13 04:30 | NUR ---
ICU/TEST DEVELOPER PT MOVED FROM CHAIR TO BED. PT REMAINS ON THE HIGH FLOW WITH SATURATION AT 93-95%. CALL LIGHT WITHIN REACH. WILL CONTINUE TO MONITOR THIS PT.
[2021-03-13 05:10] LABS: BASOPHILS % (AUTO) 0.9 % (0.0-2.0); EOSINOPHILS % (AUTO) 2.1 % (0.0-6.0); HEMATOCRIT 34 % (33-45); HEMOGLOBIN 11.4 g/dL (11.5-14.8); LYMPHOCYTES # (AUTO) 0.9 K/uL (0.8-4.8); LYMPHOCYTES % (AUTO) 18.5 % (20.0-44.0); MEAN CORPUSCULAR HGB CONC 34 g/dl (31.0-36.0); MEAN CORPUSCULAR VOLUME 88 fL (82-100); MONOCYTES # (AUTO) 0.4 K/uL (0.1-1.30); MONOCYTES % (AUTO) 8.3 % (2.0-12.0); NEUTROPHILS # (AUTO) 3.6 K/uL (1.8-8.9); NEUTROPHILS % (AUTO) 70.2 % (43.0-81.0); PLATELET COUNT (AUTO) 314 K/uL (150-450); RED BLOOD CELL COUNT(AUTO) 3.84 MIL/uL (4.0-5.2); WHITE BLOOD COUNT (AUTO) 5.1 K/uL (4.3-11.0)
[2021-03-13 05:42] LABS: ALBUMIN 2.3 g/dL (3.4-5.0); BILIRUBIN,DIRECT 0.1 mg/dL (0.0-0.2); BILIRUBIN,TOTAL 0.3 mg/dL (0.2-1.0); CREATININE 1.1 mg/dL (0.6-1.3); POTASSIUM 3.8 mmol/L (3.5-5.1); TOTAL PROTEIN, SERUM 6.3 g/dL (6.4-8.2)
--- NOTE | 2021-03-13 07:30 | NUR ---
RN NOTES PT FOUND SITTING IN CHAIR DISPLAYING NO S/S OF DISTRESS, PT ENDORSES NO PAIN AND BREATHING IS EVEN AND MINIMAL LABOR ON HIGH FLOW NC. PT CALM AND COOPERATIVE. L UA MIDLINE IS PATIENT AND INTACT. VSS, RN WILL MONITOR AND TREAT THROUGHOUT SHIFT. SAFETY MEASURES IN PLACE, CALL LIGHT WITHIN REACH AND PATIENT INSTRUCTED TO CALL FOR ASSISTANCE.
[2021-03-13] MEDS: FAMOTIDINE (20 MG) 20 MG TABLET PO SCH (08:03)
[2021-03-13] MEDS: DEXAMETHASONE SOD PHOSPHATE 10 MG/ML VIAL IV SCH (08:03)
[2021-03-13] MEDS: DOCUSATE SODIUM 100 MG CAPSULE PO SCH (08:03)
[2021-03-13] MEDS: PANTOPRAZOLE 40 MG/PACK PACK PO SCH (08:04)
[2021-03-13] MEDS: ENOXAPARIN SODIUM 40 MG/0.4 ML DISP.SYRIN SQ SCH ×2 (08:04→16:41)
[2021-03-13] MEDS: BLOOD SUGAR DIAGNOSTIC 1 EACH STRIP IN SCH ×4 (08:05→22:04)
[2021-03-13] MEDS: INSULIN REGULAR, HUMAN 100 UNIT/ML 3 ML VIAL SQ PRN ×4 (08:24→17:07)
[2021-03-13] MEDS: GLUCERNA SHAKE 237 ML CAN PO SCH ×2 (12:13→17:14)
--- NOTE | 2021-03-13 12:30 | NUR ---
MD COMMUNICATION RN PERFORMED ACCU CHECK, VALUE WAS 504. RN NOTIFIED HOSPITALIST PER ORDER. DEVULCANIZER LOADER KEH GAVE ORDERS, GIVE SLIDING SCALE, RECHECK SOON AND NOTIFY DEVULCANIZER LOADER. RN ACKNOWLEDGED AND WILL CARRY OUT ORDERS
--- NOTE | 2021-03-13 14:10 | NUR ---
ASSISTANT CITY ATTORNEY VISIT ASSISTANT CITY ATTORNEY [facility] VISITING PT, RN INFORMED ASSISTANT CITY ATTORNEY OF F/U ACCU CHECK. ASSISTANT CITY ATTORNEY ORDERED TO GIVE ANOTHER SLIDING SCALE. RN WILL EXECUTE
[2021-03-13] MEDS ORDERED: BENZONATATE 100 MG CAPSULE PO PRN (15:00)
[2021-03-13] MEDS: hydrALAZINE HCL 50 MG TABLET PO SCH (16:37)
[2021-03-13] MEDS: METOPROLOL TARTRATE 25 MG TABLET PO SCH (16:39)
--- NOTE | 2021-03-13 19:10 | NUR ---
RN NOTES PT FOUND SEMI FOWLERS DISPLAYING NO S/S OF DISTRESS, PT ENDORSES NO PAIN AND BREATHING IS EVEN AND MINIMAL LABOR ON HIGH FLOW NC. PT CALM AND COOPERATIVE. L UA MIDLINE IS PATIENT AND INTACT. SBAR AND REPORT GIVEN TO COMMUNITY SUPPORT ASSOCIATE RN, ALL QUESTIONS ANSWERED. SAFETY MEASURES IN PLACE, CALL LIGHT WITHIN REACH AND PATIENT INSTRUCTED TO CALL FOR ASSISTANCE. PT ENDORSED IN STABLE CONDITION FOR BERNADETTE.
--- NOTE | 2021-03-13 20:30 | NUR ---
ICU/CORE MICROARCHITECT PT IS CLEARED TO BE DOWN GRADED.
[2021-03-13] MEDS: GABAPENTIN 400 MG CAPSULE PO SCH (21:22)
--- NOTE | 2021-03-13 22:00 | NUR ---
ICU/WIND POWER PROJECT MANAGER PT WAS GIVEN TESSALON PERLES FOR COUGH. NO DISTRESS SEEN AT THIS TIME , CALL LIGHT WITHIN REACH.
[2021-03-13] MEDS: *INSULIN REGULAR(HUMULIN R)HUM 100 UNIT/ML VIAL SQ PRN (22:11)
[2021-03-13] MEDS: INSULIN GLARGINE, 100 UNIT/ML CARTRIDGE SQ SCH (22:12)
[2021-03-14] VITALS (32 sets, daily range): BP systolic 89–144; BP diastolic 34–80
--- NOTE | 2021-03-14 01:35 | NUR ---
ICU/DENTAL HYGIENE TEACHER PT APPEARS TO BE RESTING COMFORTABLE. NO ACUTE DISTRESS SEEN AT THIS TIME. PT IS ON HIGH FLOW, WITH SATURATION AT 92-94%.
[2021-03-14 05:26] LABS: BASOPHILS # (AUTO) 0.1 K/uL (0.0-0.2); BASOPHILS % (AUTO) 1.2 % (0.0-2.0); EOSINOPHILS % (AUTO) 1.3 % (0.0-6.0); HEMATOCRIT 33 % (33-45); HEMOGLOBIN 11.2 g/dL (11.5-14.8); LYMPHOCYTES % (AUTO) 17.4 % (20.0-44.0); MEAN CORPUSCULAR HGB CONC 34 g/dl (31.0-36.0); MEAN CORPUSCULAR VOLUME 88 fL (82-100); MONOCYTES # (AUTO) 0.5 K/uL (0.1-1.30); MONOCYTES % (AUTO) 9.3 % (2.0-12.0); NEUTROPHILS # (AUTO) 4.1 K/uL (1.8-8.9); NEUTROPHILS % (AUTO) 70.8 % (43.0-81.0); PLATELET COUNT (AUTO) 282 K/uL (150-450); RED BLOOD CELL COUNT(AUTO) 3.72 MIL/uL (4.0-5.2); WHITE BLOOD COUNT (AUTO) 5.8 K/uL (4.3-11.0)
[2021-03-14 05:42] LABS: CALCIUM, SERUM 8.4 mg/dL (8.5-10.1); CREATININE 1.1 mg/dL (0.6-1.3); POTASSIUM 4.5 mmol/L (3.5-5.1)
--- NOTE | 2021-03-14 06:00 | NUR ---
ICU/LIVESTOCK EXHIBITOR CALLED THE ART GILDER TO GET EAR DROPS FOR PT, SHE COMPLAINED THAT HER EARS ARE "POPPING" AWAIT FOR CALL BACK.
--- NOTE | 2021-03-14 07:30 | NUR ---
RN NOTES PT FOUND SITTING IN CHAIR TALKING ON PHONE DISPLAYING NO S/S OF DISTRESS, PT ENDORSES NO PAIN AND BREATHING IS EVEN AND MINIMAL LABOR ON HIGH FLOW NC. PT CALM AND COOPERATIVE. L UA MIDLINE IS PATIENT AND INTACT. VSS, RN WILL MONITOR AND TREAT THROUGHOUT SHIFT. SAFETY MEASURES IN PLACE, CALL LIGHT WITHIN REACH AND PATIENT INSTRUCTED TO CALL FOR ASSISTANCE.
[2021-03-14] MEDS: BLOOD SUGAR DIAGNOSTIC 1 EACH STRIP IN SCH ×4 (08:05→21:38)
[2021-03-14] MEDS: DEXAMETHASONE SOD PHOSPHATE 10 MG/ML VIAL IV SCH (08:05)
[2021-03-14] MEDS: hydrALAZINE HCL 50 MG TABLET PO SCH ×2 (08:08→17:44)
[2021-03-14] MEDS: DOCUSATE SODIUM 100 MG CAPSULE PO SCH (08:08)
[2021-03-14] MEDS: FAMOTIDINE (20 MG) 20 MG TABLET PO SCH (08:09)
[2021-03-14] MEDS: METOPROLOL TARTRATE 25 MG TABLET PO SCH ×2 (08:09→17:43)
[2021-03-14] MEDS: PANTOPRAZOLE 40 MG/PACK PACK PO SCH (08:09)
[2021-03-14] MEDS: ENOXAPARIN SODIUM 40 MG/0.4 ML DISP.SYRIN SQ SCH ×2 (08:10→17:45)
[2021-03-14] MEDS: INSULIN REGULAR, HUMAN 100 UNIT/ML 3 ML VIAL SQ PRN ×3 (08:33→17:56)
[2021-03-14] MEDS: GLUCERNA SHAKE 237 ML CAN PO SCH ×2 (13:10→18:30)
[2021-03-14] MEDS ORDERED: CARBAMIDE PEROXIDE OTIC 15 ML BOTTLE EACH EAR ONE (17:00)
--- NOTE | 2021-03-14 19:30 | NUR ---
RN NOTES PT FOUND SEMI FOWLERS DISPLAYING NO S/S OF DISTRESS, PT ENDORSES NO PAIN AND BREATHING IS EVEN AND MINIMAL LABOR ON HIGH FLOW NC. PT CALM AND COOPERATIVE. L UA MIDLINE IS PATIENT AND INTACT. SBAR AND REPORT GIVEN TO PUBLIC HEALTH POLICY ANALYST RN, ALL QUESTIONS ANSWERED. SAFETY MEASURES IN PLACE, CALL LIGHT WITHIN REACH AND PATIENT INSTRUCTED TO CALL FOR ASSISTANCE. PT ENDORSED IN STABLE CONDITION FOR BERNADETTE.
[2021-03-14] MEDS: GABAPENTIN 400 MG CAPSULE PO SCH (21:55)
[2021-03-14] MEDS: INSULIN GLARGINE, 100 UNIT/ML CARTRIDGE SQ SCH (21:57)
[2021-03-14] MEDS: *INSULIN REGULAR(HUMULIN R)HUM 100 UNIT/ML VIAL SQ PRN (21:57)
[2021-03-15] VITALS (13 sets, daily range): BP systolic 106–138; BP diastolic 57–79
--- NOTE | 2021-03-15 01:35 | NUR ---
RN NOTE PT APPEARS COMFORTABLE, RESTING. NO DISTRESS NOTED. PT O2SAT 94% AT THIS TIME. ALL NEEDS ATTENDED.
[2021-03-15 04:58] LABS: CREATININE 1.1 mg/dL (0.6-1.3); POTASSIUM 4.2 mmol/L (3.5-5.1)
[2021-03-15 05:03] LABS: BASOPHILS # (AUTO) 0.1 K/uL (0.0-0.2); BASOPHILS % (AUTO) 1.2 % (0.0-2.0); HEMATOCRIT 34 % (33-45); HEMOGLOBIN 11.5 g/dL (11.5-14.8); LYMPHOCYTES # (AUTO) 1.1 K/uL (0.8-4.8); LYMPHOCYTES % (AUTO) 16.9 % (20.0-44.0); MEAN CORPUSCULAR HGB CONC 34 g/dl (31.0-36.0); MEAN CORPUSCULAR VOLUME 89 fL (82-100); MONOCYTES # (AUTO) 0.5 K/uL (0.1-1.30); MONOCYTES % (AUTO) 7.9 % (2.0-12.0); NEUTROPHILS # (AUTO) 4.6 K/uL (1.8-8.9); PLATELET COUNT (AUTO) 288 K/uL (150-450); RED BLOOD CELL COUNT(AUTO) 3.84 MIL/uL (4.0-5.2); WHITE BLOOD COUNT (AUTO) 6.3 K/uL (4.3-11.0)
--- NOTE | 2021-03-15 07:31 | NUR ---
RN CLOSING NOTE NO SIGNIFICANT CHANGE IN PT CONDITION. ALL NEEDS ATTENDED. DENIES PAIN AND SOB. ON HIGH FLOW 40L FIO2 75% TOLERATING WELL. O2 SAT 93%. PT REMAINS INDEPENDENT. MOTIVATED TO SELF CARE. SAFETY MEASURES IN PLACE. ENDORSED TO DAY SHIFT RN FOR CONTINUATION OF CARE.
[2021-03-15] MEDS: BLOOD SUGAR DIAGNOSTIC 1 EACH STRIP IN SCH ×4 (08:25→21:14)
[2021-03-15] MEDS: FAMOTIDINE (20 MG) 20 MG TABLET PO SCH (08:26)
[2021-03-15] MEDS: METOPROLOL TARTRATE 25 MG TABLET PO SCH ×2 (08:26→16:53)
[2021-03-15] MEDS: hydrALAZINE HCL 50 MG TABLET PO SCH ×2 (08:26→16:52)
[2021-03-15] MEDS: DEXAMETHASONE SOD PHOSPHATE 10 MG/ML VIAL IV SCH (08:26)
[2021-03-15] MEDS: DOCUSATE SODIUM 100 MG CAPSULE PO SCH ×2 (08:27→09:00)
[2021-03-15] MEDS: ENOXAPARIN SODIUM 40 MG/0.4 ML DISP.SYRIN SQ SCH ×2 (08:29→16:55)
--- NOTE | 2021-03-15 08:32 | NUR ---
fio2 titrate down from 75% to 60% fio2. spo2 92% Addendum: 03/15/21 at 0833 by ANTONY WALLACE RT Amended: Links added.
[2021-03-15] MEDS: PANTOPRAZOLE 40 MG/PACK PACK PO SCH (09:00)
[2021-03-15] MEDS: INSULIN REGULAR, HUMAN 100 UNIT/ML 3 ML VIAL SQ PRN ×3 (09:03→17:50)
--- NOTE | 2021-03-15 11:48 | NUR ---
REPORT GIVEN TO ELIZABETH SAUER AT 1114 FOR PATIENT TRANSFER TO ROOM 113-2. PT TRANSFERRED VIA BED WITH 2 RNS ON OXYGEN AND PATTERNMAKER WOOD TO ROOM 113-2 AT 1148. ELIZABETH SAUER MET MARKETING DEVELOPMENT SPECIALIST IN ROOM. MARKETING DEVELOPMENT SPECIALIST SETTLED PATIENT IN ROOM. ALL BELONGINGS AND CHART BROUGHT WITH PATIENT.
--- NOTE | 2021-03-15 12:03 | NUR ---
TRANSFER NOTES RECEIVED PT FROM ICU IN STABLE CONDITION AND WAS GIVEN REPORT BY CAMACHO HUDDLESTON. NO SOB, NOT IN DISTRESS, BREATHING EVEN, RESPIRATION UNLABORED. PT ON HIGH FLOW O2 ON 40. SATING AT 95%. SKIN IS INTACT, DIET IS CCHO. PT HAS IV ACCESS ON GUILLERMINA MID. ALL SAFETY MEASURES ARE IN PLACE, BED IN LOWEST LOCKED POSITION, SR UP X 3, CALL LIGHT WITHIN REACH. WILL CONTINUE TO MONITOR THROUGHOUT SHIFT.
[2021-03-15] MEDS: GLUCERNA SHAKE 237 ML CAN PO SCH ×2 (13:00→17:28)
--- NOTE | 2021-03-15 19:10 | NUR ---
RN OPENING NOTES RECEIVED PATIENT IN BED, AWAKE, ALERT AND VERBALLY RESPONSIVE, NO SOB NOTED NOT IN DISTRESS, A/O X 4 PT ON ROOM AIR . PATIENT NOTED WITH GUILLERMINA MID LINE, PATENT INTACT AND FLUSHED WITH NORMAL SALINE. ALL SAFETY PRECAUTION IMPLEMENTED. BED IS AT LOWEST POSITION AND LOCKED. BED ALARM ARMED. CALL LIGHT IS WITHIN REACH. WILL CONTINUE TO MONITOR
--- NOTE | 2021-03-15 19:11 | NUR ---
RN CLOSING NOTE NO SIGNIFICANT CHANGE IN PT CONDITION. ALL NEEDS ATTENDED. DENIES PAIN AND SOB. ON HIGH FLOW 40L FIO2 75% TOLERATING WELL. O2 SAT 95%. PT REMAINS INDEPENDENT. MOTIVATED TO SELF CARE. SAFETY MEASURES IN PLACE. BED LOCKED AND IN LOWEST POSITION, SR UP X3, CALL LIGHT WITHIN REACH. WILL ENDORSE TO DATA COLLECTION SPECIALIST RN FOR CONTINUATION OF CARE.
[2021-03-15] MEDS: GABAPENTIN 400 MG CAPSULE PO SCH (21:02)
[2021-03-15] MEDS: *INSULIN REGULAR(HUMULIN R)HUM 100 UNIT/ML VIAL SQ PRN (21:18)
[2021-03-15] MEDS: INSULIN GLARGINE, 100 UNIT/ML CARTRIDGE SQ SCH (21:19)
[2021-03-16] VITALS: BP 119/70
[2021-03-16 04:00] VITALS: BP 152/75
--- NOTE | 2021-03-16 07:33 | NUR ---
RN CLOSING NOTES PATIENT REMAIN STABLE THROUGH OUT THE NIGHT, NO SOB NOTED NOT IN DISTRESS, A/O X 4 PT ON ROOM AIR . PATIENT NOTED WITH GUILLERMINA MID LINE, PATENT INTACT AND FLUSHED WITH NORMAL SALINE. ALL DUE MEDS GIVEN ORDERED. ALL SAFETY PRECAUTION IMPLEMENTED. BED IS AT LOWEST POSITION AND LOCKED. BED ALARM ARMED. CALL LIGHT IS WITHIN REACH. WILL CONTINUE TO MONITOR
--- NOTE | 2021-03-16 07:46 | NUR ---
LABORATORY WORKER OPENING NOTES RECEIVED PATIENT IN BED, AWAKE, ALERT AND VERBALLY RESPONSIVE, NO SOB NOTED NOT IN DISTRESS, A/O X 4, PT ON HIGH FLOW 40L OF OXYGEN 60% O2 DELIVERY WITH OXYGEN SATURATION OF 97%. PATIENT NOTED WITH GUILLERMINA MID LINE, PATENT INTACT AND FLUSHED WITH NORMAL SALINE. ALL SAFETY PRECAUTION IMPLEMENTED. BED IS AT LOWEST POSITION AND LOCKED. BED ALARM ARMED. CALL LIGHT IS WITHIN REACH. WILL CONTINUE TO MONITOR
[2021-03-16 08:00] VITALS: BP 121/71
[2021-03-16] MEDS: BLOOD SUGAR DIAGNOSTIC 1 EACH STRIP IN SCH ×4 (08:16→21:14)
[2021-03-16] MEDS: ENOXAPARIN SODIUM 40 MG/0.4 ML DISP.SYRIN SQ SCH ×2 (08:17→16:19)
[2021-03-16] MEDS: hydrALAZINE HCL 50 MG TABLET PO SCH ×2 (08:22→16:19)
[2021-03-16] MEDS: DEXAMETHASONE SOD PHOSPHATE 10 MG/ML VIAL IV SCH (08:22)
[2021-03-16] MEDS: FAMOTIDINE (20 MG) 20 MG TABLET PO SCH (08:22)
[2021-03-16] MEDS: DOCUSATE SODIUM 100 MG CAPSULE PO SCH (08:22)
[2021-03-16] MEDS: INSULIN REGULAR, HUMAN 100 UNIT/ML 3 ML VIAL SQ PRN ×3 (08:24→16:46)
[2021-03-16] MEDS: METOPROLOL TARTRATE 25 MG TABLET PO SCH ×2 (08:24→16:18)
[2021-03-16 08:30] LABS: BASOPHILS % (AUTO) 0.7 % (0.0-2.0); EOSINOPHILS % (AUTO) 0.8 % (0.0-6.0); HEMATOCRIT 36 % (33-45); HEMOGLOBIN 11.8 g/dL (11.5-14.8); LYMPHOCYTES # (AUTO) 1.3 K/uL (0.8-4.8); MEAN CORPUSCULAR HGB CONC 33 g/dl (31.0-36.0); MEAN CORPUSCULAR VOLUME 89 fL (82-100); MONOCYTES # (AUTO) 0.6 K/uL (0.1-1.30); MONOCYTES % (AUTO) 9.2 % (2.0-12.0); NEUTROPHILS # (AUTO) 4.3 K/uL (1.8-8.9); NEUTROPHILS % (AUTO) 68.3 % (43.0-81.0); PLATELET COUNT (AUTO) 264 K/uL (150-450); RED BLOOD CELL COUNT(AUTO) 4.01 MIL/uL (4.0-5.2); WHITE BLOOD COUNT (AUTO) 6.3 K/uL (4.3-11.0)
[2021-03-16 08:58] LABS: CALCIUM, SERUM 8.6 mg/dL (8.5-10.1); CREATININE 1.1 mg/dL (0.6-1.3); POTASSIUM 4.5 mmol/L (3.5-5.1)
--- NOTE | 2021-03-16 11:00 | NUR ---
telecom specialist note seen by dr pastrana ordered duplex study both legs, encourage patient stay on side or abdomen will fu
[2021-03-16 12:00] VITALS: BP 131/63
[2021-03-16] MEDS: GLUCERNA SHAKE 237 ML CAN PO SCH ×2 (13:00→18:21)
--- NOTE | 2021-03-16 15:17 | NUR ---
director telemetry note rounds made all needs attended called cardiology for duplex left a message will f\u
[2021-03-16 16:00] VITALS: BP 126/63
--- NOTE | 2021-03-16 18:33 | NUR ---
RN CLOSING NOTES PATIENT REMAINED STABLE THROUGH OUT THE SHIFT, NO SOB NOTED NOT IN DISTRESS, A/O X4 . PATIENT NOTED WITH GUILLERMINA MID LINE, PATENT INTACT AND FLUSHED WITH NORMAL SALINE. PATIENT ON NASAL CANNULA + HIGH FLOW OF OXYGEN DELIVERING 40L OF OXYGEN. O2 SATURATION IS 93% AT THE END OF SHIFT. ALL DUE MEDS GIVEN ORDERED. ALL SAFETY PRECAUTION IMPLEMENTED. BED IS AT LOWEST POSITION AND LOCKED. BED ALARM ARMED. CALL LIGHT IS WITHIN REACH. WILL ENDORSE TO LINEN SUPPLY LOAD BUILDER NURSE.
--- NOTE | 2021-03-16 19:40 | NUR ---
RN OPENING NOTES RECEIVED PATIENT IN BED SITTING POSITION, AWAKE, ALERT, ORIENTED X 4 AND VERBALLY RESPONSIVE, NO SOB NOTED, BREATHING EVEN AND UNLABORED. PT ON HIGH FLOW 40L OF OXYGEN 60% AND TOLERATED WELL. IV ACCESS ON GUILLERMINA MID LINE, PATENT AND INTACT. NO S/S OF INFILTRATIONS. COOPERATIVE WITH CARE. ALL SAFETY MEASURES IN PLACE. BED IS AT LOWEST POSITION AND LOCKED. BED ALARM ON. BOTH SIDE RAILS UP. PLACE CALL LIGHT IS WITHIN REACH. WILL CONTINUE TO MONITOR
[2021-03-16 20:00] VITALS: BP 137/66
[2021-03-16] MEDS: GABAPENTIN 400 MG CAPSULE PO SCH (21:09)
[2021-03-16] MEDS: *INSULIN REGULAR(HUMULIN R)HUM 100 UNIT/ML VIAL SQ PRN (21:18)
[2021-03-16] MEDS: INSULIN GLARGINE, 100 UNIT/ML CARTRIDGE SQ SCH (21:19)
--- NOTE | 2021-03-16 21:25 | NUR ---
RN NOTES: PT'S BLOOD SUGAR 294, 6 UNITS OF REGULAR INSULIN AND LONG ACTING LANTUS 20 UNITS GIVEN. NO S/S OF HYPER/HYPOGLYCEMIA. WILL CONTINUE TO MONITOR
[2021-03-17] VITALS: BP 136/67
[2021-03-17 04:00] VITALS: BP 151/77
--- NOTE | 2021-03-17 06:52 | NUR ---
RN CLOSING NOTES PATIENT SLEEPING IN BED BUT EASILY AROUSABLE, AWAKE, ALERT, ORIENTED X 4 AND VERBALLY RESPONSIVE, NO SOB NOTED, BREATHING EVEN AND UNLABORED. PT ON HIGH FLOW 40L OF OXYGEN 60%. O2 SAT 97%. AND TOLERATED WELL. IV ACCESS ON [place] MID LINE, PATENT AND INTACT. NO S/S OF INFILTRATIONS. COOPERATIVE WITH CARE. ALL DUE MED GIVEN ORDERED. PT AMBULATORY TO THE RESTROOM. ALL SAFETY MEASURES IN PLACE. BED IS AT LOWEST POSITION AND LOCKED. BED ALARM ON. BOTH SIDE RAILS UP. PLACE CALL LIGHT IS WITHIN REACH. WILL ENDORSE TO MORNING SHIFT NURSE.
--- NOTE | 2021-03-17 07:35 | NUR ---
RN OPEN NOTES PATIENT RECEIVED IN BED AWAKE, ALERT AND ORIENTED X 4 AND VERBALLY RESPONSIVE, NO SOB NOTED, BREATHING EVEN AND UNLABORED. PT ON HIGH FLOW 40L OF OXYGEN 60%. O2 SAT 97%. AND TOLERATED WELL. IV ACCESS ON [place] MID LINE, PATENT AND INTACT. NO S/S OF INFILTRATIONS. COOPERATIVE WITH CARE. PT IS AMBULATORY TO THE RESTROOM. ALL SAFETY MEASURES IN PLACE. BED IS AT LOWEST POSITION AND LOCKED. BED ALARM ON. BOTH SIDE RAILS UP. PLACE CALL LIGHT IS WITHIN REACH.WILL CONTINUE TO MONITOR
[2021-03-17] MEDS: BLOOD SUGAR DIAGNOSTIC 1 EACH STRIP IN SCH ×4 (07:37→21:03)
[2021-03-17 08:00] VITALS: BP 120/81
[2021-03-17] MEDS: METOPROLOL TARTRATE 25 MG TABLET PO SCH ×2 (08:45→16:38)
[2021-03-17] MEDS: DOCUSATE SODIUM 100 MG CAPSULE PO SCH (08:45)
[2021-03-17] MEDS: FAMOTIDINE (20 MG) 20 MG TABLET PO SCH (08:45)
[2021-03-17] MEDS: hydrALAZINE HCL 50 MG TABLET PO SCH ×2 (08:45→16:38)
[2021-03-17] MEDS: VALSARTAN 40 MG TABLET PO SCH (08:46)
[2021-03-17] MEDS: DEXAMETHASONE SOD PHOSPHATE 10 MG/ML VIAL IV SCH (08:46)
[2021-03-17] MEDS: ENOXAPARIN SODIUM 40 MG/0.4 ML DISP.SYRIN SQ SCH ×2 (08:47→16:34)
[2021-03-17] MEDS: INSULIN REGULAR, HUMAN 100 UNIT/ML 3 ML VIAL SQ PRN ×5 (09:52→21:18)
--- NOTE | 2021-03-17 11:45 | NUR ---
RN NOTE ACCU CHECK CRITICAL RESULT 543 DOCTOR NOTIFIED 20 UNITS GIVEN WILL CONTINUE TO MONITOR
[2021-03-17 12:00] VITALS: BP 128/61
[2021-03-17] MEDS: GLUCERNA SHAKE 237 ML CAN PO SCH ×2 (12:13→17:49)
--- NOTE | 2021-03-17 14:45 | NUR ---
RN NOTE BLOOD GLUCOSE 605 DOCTOR NOTIFIED INSULIN GIVEN WILL CONTINUE TO MONITOR
[2021-03-17 16:00] VITALS: BP 124/59
[2021-03-17] MEDS ORDERED: INSULIN LISPRO/ASPART 100 UNIT/ML CARTRIDGE SQ SCH (17:00)
--- NOTE | 2021-03-17 18:30 | NUR ---
RN NOTE ACCU CHECK 462 BLOOD GLUCOSE ORDER IN PLACE WILL KEEP MONITORING
--- NOTE | 2021-03-17 18:44 | NUR ---
RN CLOSING NOTES PATIENT REMAINS IN BED AWAKE, ALERT AND ORIENTED X 4, NO SOB NOTED, BREATHING EVEN AND UNLABORED. PT ON HIGH FLOW 40L OF OXYGEN 60%. O2 SAT 92%. TOLERATED WELL. IV ACCESS ON [place] MID LINE, PATENT AND INTACT. NO S/S OF INFILTRATIONS. COOPERATIVE WITH CARE. PT IS AMBULATORY TO THE RESTROOM. ALL NEEDS MET DURING SHIFT, SAFETY MEASURES IN PLACE. BED IS AT LOWEST POSITION AND LOCKED. BED ALARM ON. BOTH SIDE RAILS UP. CALL LIGHT WITHIN REACH.WILL ENDORSE TO [employer] TENDERRESEARCH PROJECT COORDINATOR
--- NOTE | 2021-03-17 19:45 | NUR ---
RN OPENING NOTES RECEIVED CARE OF PATIENT WHILE PATIENT IN BED, A/O X4, ABLE TO VERBALIZE NEEDS. PATIENT ON HIGH FLOW O2 AT 40L/MIB, FIO2 60%, O2 SAT AT THIS TIME IS 96%, NO SOB NOTED. DAY SHIFT NURSE ENDORSED A GLUCOSE READING OF 462, NURSE LET AWARE, MD PRESCRIBED 20 UNITS OF NOVOLOG A ONE TIME DOSE. WILL ADMINISTER AND CONTINUE TO MONITOR GLUCOSE. IV ACCESS ON GUILLERMINA MID LINE, PATENT AND INTACT. NO S/S OF INFILTRATIONS. PT IS AMBULATORY TO THE RESTROOM. ALL APPROPRIATE ISOLATION PRECAUTIONS IMPLEMENTED. SAFETY MEASURES IN PLACE. BED IS AT LOWEST POSITION AND LOCKED. BED ALARM ON. SIDE RAILS UP X2. CALL LIGHT WITHIN REACH. WILL CONTINUE TO MONITOR PATIENT FOR ANY CHANGES.
[2021-03-17 20:00] VITALS: BP 139/64
[2021-03-17] MEDS ORDERED: INSULIN ASPART/LISPRO 100 UNIT/ML CARTRIDGE SQ ONE (20:00)
[2021-03-17] MEDS: GABAPENTIN 400 MG CAPSULE PO SCH (21:02)
[2021-03-17] MEDS ORDERED: INSULIN GLARGINE, 100 UNIT/ML CARTRIDGE SQ SCH (22:00)
[2021-03-18] VITALS: BP 116/49
[2021-03-18 04:00] VITALS: BP 156/71
--- NOTE | 2021-03-18 06:43 | NUR ---
RN CLOSING NOTES WILL ENDORSED CARE OF PATIENT WHILE PATIENT IN BED, SLEEPING BUT WAKES UP TO NAME, A/O X4, ABLE TO VERBALIZE NEEDS. PATIENT ON HIGH FLOW O2 AT 40L/MIB, FIO2 60%, O2 SAT AT THIS TIME IS 94%, NO SOB NOTED. BLOOD GLUCOSE READING AT 2200 WAS 338, 12 UNITS OF REGULAR INSULIN GIVEN PER SLIDING SCALE PROTOCOL. ALL DUE MEDS GIVEN. IV ACCESS ON GUILLERMINA MID LINE, PATENT AND INTACT. NO S/S OF INFILTRATIONS. ALL APPROPRIATE ISOLATION PRECAUTIONS FOLLOWED. SAFETY MEASURES IN PLACE. BED IS AT LOWEST POSITION AND LOCKED. BED ALARM ON. SIDE RAILS UP X2. CALL LIGHT WITHIN REACH. WILL ENDORSE TO DAY SHIFT NURSE FOR BERNADETTE.
[2021-03-18] MEDS: BLOOD SUGAR DIAGNOSTIC 1 EACH STRIP IN SCH ×4 (07:28→21:36)
[2021-03-18 08:00] VITALS: BP 108/75
--- NOTE | 2021-03-18 08:01 | NUR ---
RN OPEN NOTES PT RECEIVED IN BED AWAKE, A/O X4, ABLE TO VERBALIZE NEEDS. PATIENT IS ON HIGH FLOW O2 AT 40L/NC, FIO2 60%, O2 SAT AT THIS TIME IS 93%, NO SOB NOTED. BLOOD GLUCOSE READING AT 07:30 195, IV ACCESS ON GUILLERMINA MID LINE, PATENT AND INTACT. NO S/S OF INFILTRATIONS. ALL APPROPRIATE ISOLATION PRECAUTIONS FOLLOWED. SAFETY MEASURES IN PLACE. BED IS AT LOWEST POSITION AND LOCKED. BED ALARM ON. SIDE RAILS UP X2. CALL LIGHT WITHIN REACH. WILL CONTINUE TOP MONITOR
[2021-03-18] MEDS: DOCUSATE SODIUM 100 MG CAPSULE PO SCH (08:22)
[2021-03-18] MEDS: VALSARTAN 40 MG TABLET PO SCH (08:23)
[2021-03-18] MEDS: hydrALAZINE HCL 50 MG TABLET PO SCH ×2 (08:23→16:59)
[2021-03-18] MEDS: FAMOTIDINE (20 MG) 20 MG TABLET PO SCH (08:23)
[2021-03-18] MEDS: ENOXAPARIN SODIUM 40 MG/0.4 ML DISP.SYRIN SQ SCH ×2 (08:24→17:01)
[2021-03-18] MEDS: DEXAMETHASONE SOD PHOSPHATE 10 MG/ML VIAL IV SCH (08:24)
[2021-03-18] MEDS: METOPROLOL TARTRATE 25 MG TABLET PO SCH ×2 (08:24→16:59)
[2021-03-18] MEDS: INSULIN GLARGINE, 100 UNIT/ML CARTRIDGE SQ SCH ×3 (08:41→17:00)
[2021-03-18] MEDS: INSULIN LISPRO/ASPART 100 UNIT/ML CARTRIDGE SQ SCH ×3 (08:42→17:00)
[2021-03-18] MEDS: LIDOCAINE 5% (PATCH) 1 EA PATCH TP SCH (10:48)
[2021-03-18 11:20] LABS: ALBUMIN 2.5 g/dL (3.4-5.0); BILIRUBIN,TOTAL 0.4 mg/dL (0.2-1.0); CALCIUM, SERUM 8.9 mg/dL (8.5-10.1); CREATININE 1.2 mg/dL (0.6-1.3); POTASSIUM 4.5 mmol/L (3.5-5.1); TOTAL PROTEIN, SERUM 5.9 g/dL (6.4-8.2)
[2021-03-18 12:00] VITALS: BP 115/51
--- NOTE | 2021-03-18 12:00 | NUR ---
RN NOTE PER DOCTOR CONTINUE WITH SLIDING SCALE IF SUGAR IS LESS THAN 400
[2021-03-18] MEDS: GLUCERNA SHAKE 237 ML CAN PO SCH ×2 (14:05→18:30)
[2021-03-18] MEDS: INSULIN REGULAR, HUMAN 100 UNIT/ML 3 ML VIAL SQ PRN ×3 (14:46→21:32)
[2021-03-18 16:00] VITALS: BP 131/76
--- NOTE | 2021-03-18 18:44 | NUR ---
RN CLOSING NOTES PT REMAINS IN BED AWAKE, A/O X4, ABLE TO VERBALIZE NEEDS. PATIENT IS ON HIGH FLOW O2 AT 35L/MA, FIO2 55%, O2 SAT AT THIS TIME IS 92%, NO SOB NOTED. IV ACCESS ON GUILLERMINA MID LINE, PATENT AND INTACT. NO S/S OF INFILTRATIONS. ALL APPROPRIATE ISOLATION PRECAUTIONS FOLLOWED. SAFETY MEASURES IN PLACE. BED IS AT LOWEST POSITION AND LOCKED. BED ALARM ON. SIDE RAILS UP X2. CALL LIGHT WITHIN REACH.WILL ENDORSE TO HAND III CUTTERPROGRAMS DIRECTOR
--- NOTE | 2021-03-18 19:20 | NUR ---
RN OPENING NOTES RECEIVED CARE OF PATIENT WHILE PATIENT IN BED, A/O X4, ABLE TO VERBALIZE NEEDS. PATIENT ON HIGH FLOW O2 AT 35L/MIB, FIO2 55%, O2 SAT AT THIS TIME IS 94%, NO SOB NOTED. WILL MONITOR GLUCOSE LEVELS. IV ACCESS ON GUILLERMINA MID LINE, PATENT AND INTACT. NO S/S OF INFILTRATIONS. PT IS AMBULATORY TO THE RESTROOM. ALL APPROPRIATE ISOLATION PRECAUTIONS IMPLEMENTED. SAFETY MEASURES IN PLACE. BED IS AT LOWEST POSITION AND LOCKED. BED ALARM ON. SIDE RAILS UP X2. CALL LIGHT WITHIN REACH. WILL CONTINUE TO MONITOR PATIENT FOR ANY CHANGES.
--- NOTE | 2021-03-18 19:56 | NUR ---
RN OPENING NOTE RECEIVED PATIENT IN BED, AWAKE. AOx3-4. ON NASAL CANNULA 4LPM AND TOLERATING WELL. NO SOB NOTED. NO S/SX OF RESPIRATORY DISTRESS NOTED. ON TELE MONITOR, SINUS RHYTHM DETECTED. IV ACCESS INGRIS MIDLINE. IV IS INTACT, PATENT, AND FLUSHING WELL. SAFETY PRECAUTIONS IN PLACE: BED IN LOWEST, LOCKED POSITION, SIDERAILS UPx2, AND BRAKES ON. CALL LIGHT AND TABLE WITHIN REACH. WILL CONTINUE TO MONITOR.
[2021-03-18 20:00] VITALS: BP 112/44
[2021-03-18] MEDS: GABAPENTIN 400 MG CAPSULE PO SCH (21:37)
[2021-03-19] VITALS: BP 130/75
[2021-03-19 04:00] VITALS: BP 127/77
--- NOTE | 2021-03-19 07:06 | NUR ---
RN CLOSING NOTES WILL ENDORSED CARE OF PATIENT WHILE PATIENT IN BED, SLEEPING BUT WAKES UP TO NAME, A/O X4, ABLE TO VERBALIZE NEEDS. PATIENT ON HIGH FLOW O2 AT 35L/MIB, FIO2 55%, O2 SAT AT THIS TIME IS 96%, NO SOB NOTED. ALL DUE MEDS GIVEN. IV ACCESS ON GUILLERMINA MID LINE, PATENT AND INTACT. NO S/S OF INFILTRATIONS. ALL APPROPRIATE ISOLATION PRECAUTIONS FOLLOWED. SAFETY MEASURES IN PLACE. BED IS AT LOWEST POSITION AND LOCKED. BED ALARM ON. SIDE RAILS UP X2. CALL LIGHT WITHIN REACH. WILL ENDORSE TO DAY SHIFT NURSE FOR BERNADETTE.
[2021-03-19 07:29] LABS: BASOPHILS % (AUTO) 0.5 % (0.0-2.0); EOSINOPHILS % (AUTO) 0.3 % (0.0-6.0); HEMATOCRIT 37 % (33-45); HEMOGLOBIN 12.3 g/dL (11.5-14.8); LYMPHOCYTES # (AUTO) 1.7 K/uL (0.8-4.8); LYMPHOCYTES % (AUTO) 23.9 % (20.0-44.0); MEAN CORPUSCULAR HGB CONC 34 g/dl (31.0-36.0); MEAN CORPUSCULAR VOLUME 89 fL (82-100); MONOCYTES # (AUTO) 0.6 K/uL (0.1-1.30); MONOCYTES % (AUTO) 7.8 % (2.0-12.0); NEUTROPHILS # (AUTO) 4.9 K/uL (1.8-8.9); NEUTROPHILS % (AUTO) 67.5 % (43.0-81.0); PLATELET COUNT (AUTO) 228 K/uL (150-450); RED BLOOD CELL COUNT(AUTO) 4.08 MIL/uL (4.0-5.2); WHITE BLOOD COUNT (AUTO) 7.3 K/uL (4.3-11.0)
--- NOTE | 2021-03-19 07:30 | NUR ---
RN NOTE FOUND PATIENT IN BED RESTING COMFORTABLY. PT ALERT A/OX4. SR ON TELE. PT ON HI FLOW O2 35L/MIN FIO2 55% TOLERATING WELL W/ NO SOB. PT ON CONSISTENT CARB DIET. PT HAS GUILLERMINA MIDLINE FLUSHING WELL. BED WHEELS LOCKED. CALL LIGHT WITHIN REACH. SAFETY MEASURES NOTED. WILL CONTINUE TO MONITOR.
[2021-03-19 08:00] VITALS: BP 118/78
[2021-03-19 08:11] LABS: CALCIUM, SERUM 9.6 mg/dL (8.5-10.1); CREATININE 1.1 mg/dL (0.6-1.3); MAGNESIUM 2.1 mg/dL (1.8-2.4); PHOSPHORUS 4.9 mg/dL (2.5-4.9); POTASSIUM 4.3 mmol/L (3.5-5.1)
[2021-03-19] MEDS: DOCUSATE SODIUM 100 MG CAPSULE PO SCH ×3 (09:00→09:52)
[2021-03-19] MEDS: ENOXAPARIN SODIUM 40 MG/0.4 ML DISP.SYRIN SQ SCH ×2 (09:31→17:19)
[2021-03-19] MEDS: INSULIN GLARGINE, 100 UNIT/ML CARTRIDGE SQ SCH ×2 (09:31→17:19)
[2021-03-19] MEDS: BLOOD SUGAR DIAGNOSTIC 1 EACH STRIP IN SCH ×4 (09:34→22:22)
[2021-03-19] MEDS: LIDOCAINE 5% (PATCH) 1 EA PATCH TP SCH (09:38)
[2021-03-19] MEDS: METOPROLOL TARTRATE 25 MG TABLET PO SCH ×2 (09:39→17:18)
[2021-03-19] MEDS: VALSARTAN 40 MG TABLET PO SCH (09:40)
[2021-03-19] MEDS: hydrALAZINE HCL 25 MG TABLET PO SCH ×3 (09:40→17:18)
[2021-03-19] MEDS: FAMOTIDINE (20 MG) 20 MG TABLET PO SCH (09:40)
[2021-03-19] MEDS: INSULIN LISPRO/ASPART 100 UNIT/ML CARTRIDGE SQ SCH (09:42)
[2021-03-19] MEDS: DEXAMETHASONE SOD PHOSPHATE 10 MG/ML VIAL IV SCH (09:43)
--- NOTE | 2021-03-19 11:30 | NUR ---
RN NOTE PATIENT SEEN BY DR. BURGESS UPDATED REGARDING PATIENT CURRENT CONDITION.
[2021-03-19 12:00] VITALS: BP 116/64
[2021-03-19] MEDS: GLUCERNA SHAKE 237 ML CAN PO SCH ×2 (12:28→17:16)
[2021-03-19] MEDS: INSULIN REGULAR, HUMAN 100 UNIT/ML 3 ML VIAL SQ PRN ×2 (12:33→17:20)
[2021-03-19 16:00] VITALS: BP 120/60
--- NOTE | 2021-03-19 18:35 | NUR ---
RN NOTE PATIENT IN BED RESTING COMFORTABLY. PT ALERT A/OX4. SR ON TELE. PT ON HI FLOW O2 35L/MIN FIO2 55% TOLERATING WELL W/ NO SOB. PT ON CONSISTENT CARB DIET. PT HAS GUILLERMINA MIDLINE TKO. FLUSHING WELL. ACCUCHKS DONE ORDERED. NEEDS MET. BED WHEELS LOCKED. CALL LIGHT WITHIN REACH. SAFETY MEASURES NOTED. WILL ENDORSE TO NEXT SHIFT.
--- NOTE | 2021-03-19 19:30 | NUR ---
RN NOTES RECEIVED PT FOR CONTINUITY OF CARE. PATIENT A/OX4 IN NO S/SX OF ACUTE DISTRESS AT THIS TIME; CURRENTLY ON HFNC WITH SETTINGS OF 35L AND 55%FIO2; WITH 02 SAT >95% AT THIS TIME. WILL ENSURE SAFETY MEASURES WITHIN THE SHIFT. PATIENT BED ALARM IS ON. HEAD OF BED ELEVATED. BED IS LOCKED, IN LOWEST POSITION AND SIDE RAILS UP. CALL LIGHT WITHIN REACH OF THE PATIENT. APPLICABLE ISOLATION PRECAUTIONS IN PLACE. WILL CONTINUE TO MONITOR AND REASSESS FOR ANY CHANGES AND WILL CARRY OUT ANY ONGOING AND ACTIVE MD ORDER.
[2021-03-19 20:00] VITALS: BP 110/65
[2021-03-19] MEDS: GABAPENTIN 400 MG CAPSULE PO SCH (21:21)
[2021-03-19] MEDS: *INSULIN REGULAR(HUMULIN R)HUM 100 UNIT/ML VIAL SQ PRN (21:54)
--- NOTE | 2021-03-20 02:13 | NUR ---
RN NOTES REPORT GIVEN TO CAMACHO WELLS FOR BERNADETTE. AUDIENCE DEVELOPMENT MANAGER MADE AWARE.
--- NOTE | 2021-03-20 02:46 | NUR ---
RN NOTE RECEIVED PATIENT SLEEPING, AROUSABLE TO NAME AND TOUCH. BREATHING EVEN AND UNLABORED. NO DISTRESS NOTED. ON HIGH FLOW AT 35L/MIN VIA NASAL CANNULA, FIO2 OF 55 PERCENT. HOB ELEVATED 35 DEGREES. SKIN WARM AND DRY. PATIENT STATES SHE WANTS TO REST. BED LOW, LOCKED POSITION. CALL LIGHT WITHIN REACH.
--- NOTE | 2021-03-20 05:14 | NUR ---
RN NOTE PATIENT REFUSED 0400 VITAL SIGNS. EXPLAINED THE PURPOSE AND BENEFIT 3X, STILL REFUSED. ABLE TO RETRIEVE HEART RATE VIA MONITOR AND OXYGEN SATURATION VIA BEDSIDE MONITOR. WILL CONTINUE TO MONITOR. CALL LIGHT WITHIN REACH.
--- NOTE | 2021-03-20 06:54 | NUR ---
RN NOTE NO SIGNIFICANT CHANGES DURING SHIFT. PATIENT REMAINED ASLEEP THROUGHOUT SHIFT. TOLERATED HIGH FLOW OXYGEN VIA NASAL CANNULA. PATIENT PREFERS TO DO SELF-CARE/HYGIENE. PROVIDED WITH NECESSARY HYGIENE MATERIALS, TOWELS, BODYWASH, TOOTHBRUSH/TOOTHPASTE. STANDYBY ASSIST. CALL LIGHT WITHIN REACH.
--- NOTE | 2021-03-20 07:30 | NUR ---
COMPENSATION AND HRIS ANALYST AM NOTE PATIENT IN BED, AOX 4, DENIES SOB, PAIN AT THIS TIME, PT ON HI FLOW O2 35L/MIN FIO2 55% TOLERATING WELL, GUILLERMINA MIDLINE 18G FLUSHES WELL, CDI DRESSING, CCHO DIET, AMBULATORY, POC DISCUSSED, VERBALIZED UNDERSTANDING, BED LOW/LOCKED. ISO;ATION PRECAUTION OBSERVED. CALL LIGHT WITHIN REACH. SAFETY MEASURES IN PLACE. WILL CONTINUE TO MONITOR.
[2021-03-20 08:00] VITALS: BP 114/64
[2021-03-20] MEDS: BLOOD SUGAR DIAGNOSTIC 1 EACH STRIP IN SCH ×4 (08:11→22:51)
[2021-03-20] MEDS: INSULIN REGULAR, HUMAN 100 UNIT/ML 3 ML VIAL SQ PRN ×3 (08:30→17:13)
[2021-03-20] MEDS: DEXAMETHASONE SOD PHOSPHATE 10 MG/ML VIAL IV SCH (09:17)
[2021-03-20] MEDS: FAMOTIDINE (20 MG) 20 MG TABLET PO SCH (09:18)
[2021-03-20] MEDS: DOCUSATE SODIUM 100 MG CAPSULE PO SCH (09:18)
[2021-03-20] MEDS: METOPROLOL TARTRATE 25 MG TABLET PO SCH ×2 (09:18→16:54)
[2021-03-20] MEDS: hydrALAZINE HCL 25 MG TABLET PO SCH ×3 (09:18→16:55)
[2021-03-20] MEDS: VALSARTAN 40 MG TABLET PO SCH (09:19)
[2021-03-20] MEDS: ENOXAPARIN SODIUM 40 MG/0.4 ML DISP.SYRIN SQ SCH ×2 (09:20→16:56)
[2021-03-20] MEDS: INSULIN GLARGINE, 100 UNIT/ML CARTRIDGE SQ SCH ×2 (09:25→17:14)
--- NOTE | 2021-03-20 09:30 | NUR ---
RN NOTES DUE MEDS GIVEN
[2021-03-20] MEDS: LIDOCAINE 5% (PATCH) 1 EA PATCH TP SCH (09:45)
--- NOTE | 2021-03-20 10:32 | NUR ---
pt. is awake and alert placed into nasal cannula @ 6 l[address] oxygen flow per dr. kay. high flow nasal cannula on stand by @ bedside. Addendum: 03/20/21 at 1034 by ANTONY WALLACE RT Amended: Links added.
[2021-03-20 12:00] VITALS: BP 117/70
[2021-03-20] MEDS: GLUCERNA SHAKE 237 ML CAN PO SCH ×2 (12:10→17:20)
[2021-03-20 12:21] LABS: ABG BASE EXCESS 0.7 mmol/L; ABG OXYGEN SATURATION 91.5 % (92.0-98.5); ABG PCO2 37.2 mmHg (35.0-45.0); ABG PH 7.439 (7.350-7.450); AaDO2 209.3 mmHg; COHb 0.3 % (0.5-1.5); MetHb 0.3 % (0.0-1.5); SITE, ABG Right Brachial; VENT MODE, BG nasal cannula
[2021-03-20 16:00] VITALS: BP 120/70
--- NOTE | 2021-03-20 18:51 | NUR ---
PHOTOGRAPHER NEWS NOTE PT RESTING COMFORTABLY IN BED, PATIENT SR TO ST MD AWARE. NO SOB, DENIES PAIN. PM CARE DONE EARLIER. ALL NEEDS ATTENDED. KEPT CLEAN AND DRY. CALL LIGHT WITHIN REACH. WILL ENDORSE TO NEXT SHIFT FOR BERNADETTE.
--- NOTE | 2021-03-20 19:48 | NUR ---
RT NOTE PT CURRENTLY ON 6 LPM NASAL CANNULA. PT TOLERATING WELL. NO RESPIRATORY DISTRESS NOTED. HIGH FLOW STANDBY. WILL CONTINUE TO MONITOR T/O SHIFT.
[2021-03-20 20:00] VITALS: BP 154/84
--- NOTE | 2021-03-20 20:00 | NUR ---
MARKO RN NOTES RECEIVED PATIENT IN BED A/OX4 IN NO S/SX OF ACUTE DISTRESS AT THIS TIME; CURRENTLY ON 6LITERS VIA NC ; ON SB 50-60 ON THE MONITOR WITH 02 SAT >95% AT THIS TIME. WILL ENSURE SAFETY MEASURES WITHIN THE SHIFT. PATIENT BED ALARM IS ON. HEAD OF BED ELEVATED. BED IS LOCKED, IN LOWEST POSITION AND SIDE RAILS UP. CALL LIGHT WITHIN REACH OF THE PATIENT. APPLICABLE ISOLATION PRECAUTIONS IN PLACE. WILL CONTINUE TO MONITOR AND REASSESS FOR ANY CHANGES,
[2021-03-20] MEDS: GABAPENTIN 400 MG CAPSULE PO SCH (21:22)
--- NOTE | 2021-03-20 21:22 | NUR ---
telegraph installer notes neurontin 400mg via po given at 2121 hrs (SEE ATTACH D/C ORDER )D/T NEURONTIN DUPLICATE ORDER.
--- NOTE | 2021-03-20 22:00 | NUR ---
REGIONAL ACCOUNT EXECUTIVE NOTES DUE MEDS GIVEN ORDERED ,WITH NO ASE NOTED, ALL NEEDS ATTENDED TOO.
[2021-03-20] MEDS: *INSULIN REGULAR(HUMULIN R)HUM 100 UNIT/ML VIAL SQ PRN (22:44)
--- NOTE | 2021-03-20 23:00 | NUR ---
telephone cleaner notes Blood sugar at 10pm is 157 mg/dl 30 units of lantus given as ordered and 2 units of regular insulin given per sliding scale . Pts on po diet.
[2021-03-21 02:00] VITALS: BP 143/57
[2021-03-21 04:00] VITALS: BP 130/65
--- NOTE | 2021-03-21 07:30 | NUR ---
MANAGER BANQUET AM NOTE PATIENT IN BED, AOX 4, DENIES SOB, PAIN AT THIS TIME, PT ON HI FLOW O2 35L/MIN FIO2 55% TOLERATING WELL, GUILLERMINA MIDLINE 18G FLUSHES WELL, CDI DRESSING, CCHO DIET, AMBULATORY, POC DISCUSSED, VERBALIZED UNDERSTANDING, BED LOW/LOCKED. ISOLATION PRECAUTION OBSERVED. CALL LIGHT WITHIN REACH. SAFETY MEASURES IN PLACE. WILL CONTINUE TO MONITOR.
--- NOTE | 2021-03-21 07:41 | NUR ---
telegraph printer mechanic notes Pts remains in bed a/ox 4 on 6 liters 02 nc sating 96% no sob no distress noted , will endorsed to rn day shift for continuity of care.
[2021-03-21 08:00] VITALS: BP 127/73
[2021-03-21] MEDS: BLOOD SUGAR DIAGNOSTIC 1 EACH STRIP IN SCH ×4 (08:00→21:01)
[2021-03-21] MEDS: FAMOTIDINE (20 MG) 20 MG TABLET PO SCH (08:27)
[2021-03-21] MEDS: DOCUSATE SODIUM 100 MG CAPSULE PO SCH (08:27)
[2021-03-21] MEDS: DEXAMETHASONE SOD PHOSPHATE 10 MG/ML VIAL IV SCH (08:27)
[2021-03-21] MEDS: METOPROLOL TARTRATE 25 MG TABLET PO SCH ×2 (08:30→17:28)
[2021-03-21] MEDS: VALSARTAN 40 MG TABLET PO SCH (08:30)
[2021-03-21] MEDS: hydrALAZINE HCL 25 MG TABLET PO SCH ×3 (08:30→17:27)
[2021-03-21] MEDS: ENOXAPARIN SODIUM 40 MG/0.4 ML DISP.SYRIN SQ SCH ×2 (08:33→17:35)
[2021-03-21] MEDS: INSULIN REGULAR, HUMAN 100 UNIT/ML 3 ML VIAL SQ PRN ×3 (08:46→17:41)
[2021-03-21] MEDS: INSULIN GLARGINE, 100 UNIT/ML CARTRIDGE SQ SCH ×2 (08:48→17:38)
--- NOTE | 2021-03-21 09:30 | NUR ---
RN NOTES DUE MEDS
[2021-03-21] MEDS: LIDOCAINE 5% (PATCH) 1 EA PATCH TP SCH (10:22)
[2021-03-21] MEDS ORDERED: INSU100I26 SQ (11:03)
[2021-03-21] MEDS ORDERED: HYDR-4077 PO (11:03)
[2021-03-21] MEDS ORDERED: FLUT1BLS IH (11:03)
[2021-03-21] MEDS ORDERED: DEXA6TAB6 PO (11:03)
[2021-03-21] MEDS ORDERED: ALBU18HF2 INH (11:03)
[2021-03-21 12:00] VITALS: BP 121/74
[2021-03-21] MEDS: GLUCERNA SHAKE 237 ML CAN PO SCH ×2 (13:20→18:07)
[2021-03-21 16:00] VITALS: BP 116/73
--- NOTE | 2021-03-21 18:48 | NUR ---
PANCAKE PROFESSIONAL NOTE PT RESTING COMFORTABLY IN BED, PATIENT SR. NO SOB, DENIES PAIN. PM CARE DONE EARLIER. ALL NEEDS ATTENDED. KEPT CLEAN AND DRY. CALL LIGHT WITHIN REACH. WILL ENDORSE TO NEXT SHIFT FOR BERNADETTE.
--- NOTE | 2021-03-21 19:40 | NUR ---
RN NOTE PATIENT ALERT AND ORIENTED X4, ABLE TO MAKE NEEDS KNOWN. ON O2 6L VIA NASAL CANNULA, NO S/S OF RESPIRATORY DISTRESS. DENIES ANY PAIN OR DISCOMFORT. IV ACCESS ON GUILLERMINA MIDLINE, PATENT AND INTACT. BED LOCKED AND IN LOWEST POSITION. CALL LIGHT WITHIN REACH. ALL NEEDS ANTICIPATED.
[2021-03-21 20:00] VITALS: BP 132/98
[2021-03-21] MEDS: *INSULIN REGULAR(HUMULIN R)HUM 100 UNIT/ML VIAL SQ PRN (21:04)
[2021-03-21] MEDS: GABAPENTIN 400 MG CAPSULE PO SCH (21:35)
[2021-03-22] VITALS: BP 125/69
[2021-03-22 04:00] VITALS: BP 133/55
--- NOTE | 2021-03-22 07:08 | NUR ---
RN NOTE PATIENT ALERT AND ORIENTED X4. ON O2 6L VIA NASAL CANNULA, NO S/S OF RESPIRATORY DISTRESS. DENIES ANY PAIN OR DISCOMFORT. IV ACCESS ON GUILLERMINA MIDLINE, PATENT AND INTACT. SNACKS GIVEN THIS MORNING. DUE MEDS GIVEN ORDERED. BED LOCKED AND IN LOWEST POSITION. CALL LIGHT WITHIN REACH. WILL ENDORSE TO AM SHIFT.
--- NOTE | 2021-03-22 07:57 | NUR ---
RN OPEN NOTE PATIENT ALERT AND ORIENTED X4. ON O2 6L VIA NASAL CANNULA, NO S/S OF RESPIRATORY DISTRESS. BREATHING EVEN AND UNLABORED, IV ACCESS ON GUILLERMINA MIDLINE, PATENT AND INTACT. WILL MONITOR GLUCOSE CLOSELY, BED LOCKED AND IN LOWEST POSITION. CALL LIGHT WITHIN REACH. WILL CONTINUE TO MONITOR
[2021-03-22 08:00] VITALS: BP 96/66
[2021-03-22] MEDS: DEXAMETHASONE SOD PHOSPHATE 10 MG/ML VIAL IV SCH (08:18)
[2021-03-22] MEDS: DOCUSATE SODIUM 100 MG CAPSULE PO SCH (08:18)
[2021-03-22] MEDS: FAMOTIDINE (20 MG) 20 MG TABLET PO SCH (08:18)
[2021-03-22] MEDS: hydrALAZINE HCL 25 MG TABLET PO SCH ×3 (08:20→16:42)
[2021-03-22] MEDS: ENOXAPARIN SODIUM 40 MG/0.4 ML DISP.SYRIN SQ SCH ×2 (08:20→16:43)
[2021-03-22] MEDS: METOPROLOL TARTRATE 25 MG TABLET PO SCH ×2 (08:21→16:42)
[2021-03-22] MEDS: VALSARTAN 40 MG TABLET PO SCH (08:21)
[2021-03-22] MEDS: BLOOD SUGAR DIAGNOSTIC 1 EACH STRIP IN SCH ×3 (08:45→16:56)
[2021-03-22] MEDS: INSULIN GLARGINE, 100 UNIT/ML CARTRIDGE SQ SCH ×2 (09:00→16:59)
[2021-03-22] MEDS: INSULIN REGULAR, HUMAN 100 UNIT/ML 3 ML VIAL SQ PRN ×3 (09:18→17:00)
[2021-03-22] MEDS ORDERED: METF-442 PO (09:48)
[2021-03-22] MEDS: LIDOCAINE 5% (PATCH) 1 EA PATCH TP SCH (11:16)
[2021-03-22 12:00] VITALS: BP 147/68
[2021-03-22] MEDS: GLUCERNA SHAKE 237 ML CAN PO SCH (12:52)
[2021-03-22 16:00] VITALS: BP 125/56
[2021-03-22 16:42] VITALS: BP 125/56
--- NOTE | 2021-03-22 18:52 | NUR ---
RN NOTE PT DC HOME ALL THE INSTRUCTIONS GIVEN, ON OXYGEN 2L/MIN
== END 2021-03-22 18:46 | disposition home or self-care (01) | DRG 137 ==
LOC: ER 11:12 → ICU 17:20 → TELE1 03-15 11:48 → TELE-TD 03-17 01:50 → TELE1 03-19 09:51
PROVIDERS: ADMIT Hospitalist; ATTEND Internal Medicine
PROC: XW033E5 Introduction of Remdesivir Anti-infective into Peripheral Vein, Percutaneous Approach, New Technology Group 5 (ICD-10-PCS; principal; 2021-03-08)
PROC: XW033H5 Introduction of Tocilizumab into Peripheral Vein, Percutaneous Approach, New Technology Group 5 (ICD-10-PCS; 2021-03-08)
DX: U07.1 COVID-19 (principal); J96.01 Acute respiratory failure with hypoxia; J12.82 Pneumonia due to coronavirus disease 2019; N17.0 Acute kidney failure with tubular necrosis; E88.09 Other disorders of plasma-protein metabolism, not elsewhere classified; J15.9 Unspecified bacterial pneumonia; E11.65 Type 2 diabetes mellitus with hyperglycemia; I16.0 Hypertensive urgency; I10 Essential (primary) hypertension; Z79.84 Long term (current) use of oral hypoglycemic drugs; Z68.41 Body mass index [BMI] 40.0-44.9, adult
CPT/HCPCS: 36415; 36600; 71045-TC; 80048-TC; 80053-TC; 80061-TC; 80076-TC; 81001; 82550-TC; 82570-TC; 82728-TC; 82803-TC; 82945-TC; 82962-TC; 83605-TC; 83615-TC; 83735-TC; 83880; 84100-TC; 84155-TC; 84484-TC; 85025-TC; 85378-TC; 85385-TC; 85610-TC; 85730-TC; 86140-TC; 86480; 87040-TC; 87081-TC; 87086-TC; 87899; 93970-TC; 94760-TC; 94799-TC; A4216; C9803; G0378; J0360; J1100; J1644; J1650; J1815; J2060; J2405; J3262; J3490; J7030; J7050; Q0163; U0003